=== PATIENT | male | born 1940 | race Caucasian/White ===

== ENCOUNTER 2025-04-09 10:42 | Emergency (ER) | payer MEDICARE, MEDICAID, SELFPAY ==
[2025-04-09] VITALS (9 sets, daily range): BP systolic 155–200; BP diastolic 67–82; PULSE 70–75; RESP 16–18; TEMP 36.8; O2SAT 94–98; BMI 29.5
--- NOTE | 2025-04-09 11:45 | CT_ITS ---
WS: [id number] CT CERVICAL TRAUMA TECHNIQUE: Noncontrast CT of the cervical spine with coronal and sagittal reformatted images. CLINICAL INFORMATION: injury, fall, stuck on tool box COMPARISON: None. DLP: 1374.[address] scans at [facility] use at least one of these dose optimization techniques: automated exposure control; mA and/or kV adjustment per patient size (includes targeted exams where dose is matched to clinical indication); or iterative reconstruction. FINDINGS: Ankylosis of the posterior elements. Fracture through the bony ankylosis posterior elements at LEFT C4-5 extending into the adjacent articulating facets and extending into the lamina. Suspect this extends into the LEFT C4-5 disc space with a small nondisplaced fracture involving the inferior posterior corner at C4. Disruption of the posterior longitudinal ligament. Fracture appears to extend through the disc space at C4-5 best seen on the coronal imaging. Disruption of the anterior longitudinal ligament and bridging osteophytes at this level. Straightening of the normal cervical lordosis. Hypertrophic changes cervical spine. Disc osteophyte complexes with mild to moderate central canal stenosis C2-3 through C5-6. Moderate spondylitic changes. Vascular calcification. Normal craniocervical junction. Normal C1-C2 articulation. Dens is normal in appearance. Pannus formation at the C1-2 articulation Mastoids air cells are well aerated. Nodular RIGHT thyroid. CT/CT cervical spin wo con* [id number] IMPRESSION: 1. Nondisplaced fractures involving the LEFT ankylosed posterior elements at C 4-5 extending into the articulating facets and lamina. This also appears to ext end through the C4-5 disc space with disruption of the anterior and posterior l ongitudinal ligaments. Additional nondisplaced fracture involving the LEFT post erior inferior corner C4. Recommend spine surgery consultation. 2. See bookmarked images 3. Mild to moderate central canal stenosis worse at C5-6 due to disc osteophyt e complex. Notified Jose Montaño DO at 04/09/2025 1:05 PM.
--- NOTE | 2025-04-09 11:45 | CT_ITS ---
WS: [id number] CT HEAD TECHNIQUE: Noncontrast CT of the head obtained from the skullbase to the vertex. CLINICAL INFORMATION: injury, fall COMPARISON: None. DLP: 1374.[address] scans at [facility] use at least one of these dose optimization techniques: automated exposure control; mA and/or kV adjustment per patient size (includes targeted exams where dose is matched to clinical indication); or iterative reconstruction. FINDINGS: No evidence of intracranial hemorrhage or mass effect. Ventricular system and basal cisterns are patent. Moderate small vessel changes with moderate parenchymal volume loss. No extra-axial fluid collections. No evidence of mass or mass effect. Vascular calcification. Paranasal sinuses and mastoid air cells are well aerated. .Normal visualized soft tissues. CT/CT head wo con* [id number] IMPRESSION: 1. No evidence of intracranial hemorrhage or mass effect. 2. Moderate small vessel changes with moderate parenchymal volume loss. 3. Vascular calcification. 4. No acute intracranial findings.
--- NOTE | 2025-04-09 11:55 | CT_ITS ---
WS: [id number] CT CHEST, ABDOMEN, AND PELVIS TECHNIQUE: Noncontrast CT of the chest, abdomen, and pelvis with coronal and sagittal reformatted images. CLINICAL INFORMATION: fall, trauma back pain COMPARISON: None. DLP: 885.[address] scans at [facility] use at least one of these dose optimization techniques: automated exposure control; mA and/or kV adjustment per patient size (includes targeted exams where dose is matched to clinical indication); or iterative reconstruction. CT CHEST: Sternotomy. Nodular RIGHT thyroid. Aortic calcification. Coronary calcification. CABG. Bibasilar atelectasis. No pneumothorax. No focal consolidation or pleural fluid. Ankylosis thoracic spine. No visualized compression fractures. CT ABDOMEN AND PELVIS: Normal noncontrast liver and spleen. Splenic artery calcification. Adrenal glands are normal. No hydronephrosis in either kidney. Small esophageal hiatal hernia. Fluid distended stomach with air-fluid level. Aortic calcification. 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 Tiny fat-containing umbilical hernia. No free fluid in the abdomen or pelvis. Sigmoid diverticulosis. No acute traumatic findings in the abdomen or pelvis. Ankylosis lumbar spine with laminectomy defects in the mid lumbar spine. No acute appearing compression fractures. CT/[place] [id number] IMPRESSION: No acute traumatic findings in the chest abdomen or pelvis.
--- OUTSIDE RECORDS SUMMARY | 2025-04-09 12:00 | XMS_ITS ---
Author Organization [facility] Address [address] 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 Hyperlipidemia 04/05/2008 Overview (08/19/2016): Lab Results Component Value Date/Time CHOLTOT 179 08/18/2016 08:29 AM HDL 33 (L) 08/18/2016 08:29 AM LDLCALC 88 08/18/2016 08:29 AM LDLDIRECT 133 (H) 03/08/2008 08:34 AM LDLDIRECT 03/08/2008 08:34 AM DIRECT LDL REFERENCE: < 100 Optimal 100 - 129 Near Optimal 130 - 159 Borderline High > 160 High Risk TRIGLYCERIDE 289 (H) 08/18/2016 08:29 AM Lab Results Component Value Date/Time HGBA1C 8.7 (H) 08/18/2016 08:29 AM Lab Results Component Value Date/Time NA 137 08/18/2016 08:29 AM K 5.0 08/18/2016 08:29 AM CL 98 08/18/2016 08:29 AM CO2 27 08/18/2016 08:29 AM CA 9.5 08/18/2016 08:29 AM BUN 14 08/18/2016 08:29 AM CREAT 0.86 08/18/2016 08:29 AM GLUCOSE 212 (H) 08/18/2016 08:29 AM TOTALPROTEIN 7.8 08/18/2016 08:29 AM ALBUMIN 4.2 08/18/2016 08:29 AM BILITOTAL 0.4 08/18/2016 08:29 AM ALKPHOS 47 08/18/2016 08:29 AM AST 39 08/18/2016 08:29 AM ALT 41 08/18/2016 08:29 AM ANIONGAP 12 08/18/2016 08:29 AM Assessment & Plan (08/19/2016 1:26 PM GEL COAT SPRAYER): Stable. GERD (gastroesophageal reflux disease) Current Treatment and Therapy Plans No current plan information found. Past Treatment and Therapy Plans No past plan information found. Lifetime Dose Tracking * Chemical Lifetime Dose Automatic Entry Manual Entr y Effective Dose 29.1 mSv 29.1 mSv 0 mSv Total DLP 2,750 DLP 2,750 DLP 0 DLP CTDIvol Max 121.2 mGy 121.2 mGy 0 mGy CTDIvol Min 58.2 mGy 58.2 mGy 0 mGy Resolved Problems Problem Noted Date Diagnosed Date Resolved Date Ileus 04/13/2015 08/19/2016 Prostate cancer 06/12/2014 05/19/2016 Abscess in epidural and intr adural space of lumbar spine, L2-S1 03/15/2014 04/13/2015 Overview (03/15/2014): L2-S1 decompressive lumbar laminectomy with bilateral medial facetectomies. Surgery 03-13-14 Decompression of the nerve roots of the cauda equina. Evacuation of extradural and intradural abscess L2-S1 Use of intraoperative fluoroscopy Thecal abscess 03/13/2014 04/13/2015 Overview (03/13/2014): vs possible meningitis Altered mental status 03/12/20142013 Radiculopathy of lumbar region 03/12/2014 04/13/2015 Leukocytosis 03/12/2014 04/24/2014 Hyponatremia 03/12/2014 04/24/2014 Chest pain 07/02/2008 08/14/2008 Previous back surgery 07/03/19652013 Intermediate coronary syndrome 09/15/2013 Arthropathy, unspecified, site unspecified 09/15/2013
--- OUTSIDE RECORDS SUMMARY | 2025-04-09 12:00 | XMS_ITS | Encounter Summary ---
Author Organization [facility] Address [address] [place] [address] Care Team Providers Care Director Of Home Economics Name Role Phone Destiny Peck MD Primary Care Provider [phone] Encounter Details Date Type Department Care Team (Late st Contact Info) Description 04/03/2014 Ancillary Orders [facility] Laboratory Services [place] [address] [phone] Dinah Mercado MD NO ADDRESS ON FILE Social History Tobacco Use Types Packs/Day Years Used Date Smoking Tobacco: Former Pipe Q uit: 06/21/1999 Cigars Quit: 06/21/19 00 Smokeless Tobacco: Former Chew Quit: 06/21/1999 Alcohol Use Standard Drinks/Week Comments No 0 (1 standard drink = 0.6 oz pur e alcohol) Sex and Gender Information Value Date Recorded Sex Assigned at Not on file Legal Sex Male 3:17 AM INSTITUTIONAL NUTRITION CONSULTANT Gender Identity Not on file Sexual Orientation Not on file Occupation Industry Job Start Date Job End Date Not on file Not on file Not on file Not on file documented as of this encounter Plan of Treatment Not on file documented as of this encounter Visit Diagnoses Not on filedocumented in this encounter Additional Health Concerns Infection Onset Date Last Indicated Resolved Time C Diff Comment:04/16/15 04/17/2015 04/17/2015 documented as of this encounter Care Teams Director Of Home Economics Relationship Specialty Start Date End Date Destiny Peck MD [address] [phone] PCP - General Family Practice 07/10/13 documented as of this encounter
--- OUTSIDE RECORDS SUMMARY | 2025-04-09 12:00 | XMS_ITS | Encounter Summary ---
Author Organization [facility] Address [address] [place] [address] Care Team Providers Care Process Trainer Name Role Phone Destiny ePck MD Primary Care Provider [phone] Encounter Details Date Type Department Care Team (Late st Contact Info) Description 04/10/2014 Ancillary Orders [facility] Laboratory Services [place] [address] [phone] Dinah Mercado MD NO ADDRESS ON FILE [...] on file Legal Sex Male 3:17 AM DOCTOR OF DENTAL MEDICINE Gender Identity Not on file Sexual Orientation [...] documented as of this encounter Care Teams Process Trainer Relationship Specialty Start Date End Date Destiny Peck MD [address] [phone] PCP - General Family Practice 07/10/13 documented as of this encounter
--- OUTSIDE RECORDS SUMMARY | 2025-04-09 12:00 | XMS_ITS | Encounter Summary ---
Author Organization [facility] Address [address] [place] [address] Care Team Providers Care Graduation Coach Name Role Phone Destiny Peck MD Primary Care Provider Encounter Details Date Type Department Care Team (Latest Contact Info) Description 07/30/2003 Outpatient Historical [facility] [address] [place] [address] Beth Brunre, R[employer]D MILL OPERATOR [address] [place] [phone] ACUTE SINUSITIS NOS (Primary Dx); ACUTE BRONCHITIS Social History Tobacco Use Types Packs/Day Years Used Date Smoking Tobacco: Never Assessed Sex and Gender Information Value Date Recorded Sex Assigned at Not on file Legal Sex Male 3:17 AM REPLANTING MACHINE OPERATOR Gender Identity Not on file Sexual Orientation Not on file documented as of this encounter Plan of Treatment Not on file documented as of this encounter Visit Diagnoses Diagnosis Acute sinusitis, unspecified- Primary Acute bronchitis documented in this encounter Additional Health Concerns Infection Onset Date Last Indicated Resolved Time C Diff Comment:04/16/15 04/17/2015 04/17/2015 documented as of this encounter Care Teams Graduation Coach Relationship Specialty Start Date End Date Destiny Peck MD [address] [facility] [address] [place] [phone] PCP - General Family Practice 07/10/13 documented as of this encounter
--- OUTSIDE RECORDS SUMMARY | 2025-04-09 12:00 | XMS_ITS | Encounter Summary ---
Author Organization [facility] Address [address] [place] [address] Care Team Providers Care Hotel Custodian Name Role Phone Destiny Peck MD Primary Care Provider [phone]- [phone] Encounter Details Date Type Department Care Team (Late st Contact Info) Description 04/03/2014 Ancillary Orders [facility] Laboratory Services [place] [address] [phone] Dinah Mercado MD NO ADDRESS ON FILE [...] on file Legal Sex Male 3:17 AM VERTICA ARCHITECT Gender Identity Not on file Sexual Orientation [...] documented as of this encounter Care Teams Hotel Custodian Relationship Specialty Start Date End Date Destiny Peck MD [address] [phone] PCP - General Family Practice 07/10/13 documented as of this encounter
--- OUTSIDE RECORDS SUMMARY | 2025-04-09 12:00 | XMS_ITS | Clinical Summary ---
Author Organization [facility] Address [address] [place] [address] Care Team Providers Care Manager Of Corporate Name Role Phone Destiny Peck MD Primary Care Provider Allergies No known active allergies Medications ASPIRIN 81 mg Oral Tab Take 81 mg by mouth daily. Active MULTIVITAMIN Oral Tab Take 1 Tab by mouth daily. Active acetaminophen (TYLENOL) 500 mg tablet Take 500 mg by mouth every 6 hours as needed for Pain, Mild. Active coenzyme Q10 (CO Q-10) Capsule Take 1 Capsule (10 mg) by mouth daily. 8 Active Blood-Glucose Meter (BLOOD GLUCOSE MONITOR KIT) KitIndications:T ype 2 diabetes mellitus with complication, unspecified whether long distance operator insulin use ([facility]) Use as directed.. 1 Kit 1 8 Active lancets (ONETOUCH ULTRASOFT LANCETS)Indicati ons:Uncontrolled type 2 diabetes mellitus without complication, without long-term current use of insulin Use to check blood sugar one time daily DX: E11.65. 100 Each 1 8 Active lancets 30 gauge 1 Lancet by Misc.(Non-Drug; Combo Route) route daily E11.65 Reli-On Ultra thin lancets. 100 Each 11 9 Active fluticasone propionate (FLONASE) 50 mcg/spray [place], Suspension nasal inhaler Administer 2 Sprays in each nostril daily. 16 Gram 1 9 Active omega-3 fatty acids-fish oil 300-1,000 mg Capsule Take by mouth daily. Active nitroglycerin (NITROSTAT) 0.4 mg Tablet, Sublingual Place 1 Tablet (0.4 mg) under tongue every 5 minutes as needed for Chest Pain. Go to the ER if CP not relieved by 3rd dose. 25 Tablet 1 0 Active metFORMIN (GLUCOPHAGE) 500 mg tablet 2 tablets in morning 2 tablet in afternoon 360 Tablet 3 0 Active blood sugar diagnostic (Geosophicuch Verio test strips) Strip USE 1 STRIP TO CHECK GLUCOSE ONCE DAILY DX:E11.65 100 Strip 2 1 Active hydrOXYzine HCL (ATARAX) 10 mg tablet TAKE 1 TABLET BY MOUTH TWICE DAILY NEEDED FOR ALLERGIES 30 Tablet 1 Active lisinopriL (PRINIVIL) 5 mg tablet Take 1 tablet by mouth once daily 90 Tablet 1 Active simvastatin (ZOCOR) 20 mg tablet TAKE 1 TABLET BY MOUTH ONCE DAILY. 90 Tablet 1 1 Active metoprolol tartrate (LOPRESSOR) 25 mg tablet Take 1 Tablet (25 mg) by mouth 2 times daily. 180 Tablet 1 1 Active glipiZIDE (GLUCOTROL) 5 mg tablet Take 1 tablet by mouth once daily with breakfast 30 Tablet 1 Active Active Problems Problem Noted Date Diagnosed Date [...] GLEZ/Diagnonal Assessment & Plan (08/19/2016 1:28 PM RESIDENTIAL PEST CONTROL TECHNICIAN): Stable. Hyperlipidemia 04/05/2008 Overview (08/19/2016): Lab Results [...] AM Assessment & Plan (08/19/2016 1:26 PM RESIDENTIAL PEST CONTROL TECHNICIAN): Stable. GERD (gastroesophageal reflux disease) Resolved Problems Problem Noted Date Diagnosed Date [...] syndrome 09/15/2013 Arthropathy, unspecified, site unspecified 09/15/2013 Immunizations Immunization Administration Dates Next Due INFLUENZA VACCINE HIGH DOSE QUADRIVALENT 65 YR UP PF IM 04/19/2020 Influenza Seasonal Unspecifi ed Formulation IM 07/09/2008 Influenza Vaccine High Dose 65+ Yrs IM 03/29/2019,04/05/2018,03/12/2017,2015 Influenza Vaccine Split 3+ Yrs PF IM 02/2013,04/04/2012,05/18/2011,2009 Pneumococcal 7-valent conjug ate vaccine IM 07/09/2008 Family History Medical History Relation Name Comments Heart Disease Brother 1 cinda Heart Disease Brother 2 Heart Disease Father Healthy Mother Breast Cancer Other paunt x 2 Cancer Sister stomach Hypertension Son Colon Cancer Neg Hx Relation Name Status Comments Brother 1 cinda Alive Brother 2 Daughter Father Mother Other paunt x 2 Alive Sister Son Social History Tobacco Use Types Packs/Day Years Used Date Smoking Tobacco: Former Pipe Q uit: 06/21/1999 Cigars Quit: 06/21/19 Smokeless Tobacco: Former Chew Quit: 06/21/1999 Tobacco Cessation:Counseling Given: No Alcohol Use Standard Drinks/Week Comments No 0 (1 standard drink = 0.6 oz pur e alcohol) rarely Sex and Gender Information Value Date Recorded Sex Assigned at Not on file Legal Sex Male 3:17 AM RESIDENTIAL PEST CONTROL TECHNICIAN Gender Identity Not on file Sexual Orientation Not on file Occupation Industry Job Start Date Job End Date Not on file Not on file Not on file Not on file Last Filed Vital Signs Vital Sign Reading Time Taken Comments Blood Pressure 124/72 03/20/2020 11:19 AM CDT Pulse 92 03/20/2020 11:19 AM CDT Temperature 36.2 C (97.2 F) 03/20/2020 11:19 AM CDT Respiratory Rate 20 03/20/2020 11:1 9 AM CDT Oxygen Saturation 93% 03/20/2020 11: 19 AM CDT Inhaled Oxygen Concentration - - Weight 97.9 kg (215 lb 12.8 oz) 020 11:19 AM CDT Height 177.8 cm (5' 10 ) 03/20/2020 11: 19 AM CDT Body Mass Index 30.96 03/20/2020 11:19 AM CDT Plan of Treatment Health Maintenance Due Date Last Done Comments DTAP/TDAP/TD VACCINES (1 - Tdap) 1959 PNEUMOCOCCAL VACCINE 50+ YEA RS (1 of 2 - PCV) 1959 07/09/2008 ZOSTER VACCINE (1 of 2) 1990 RSV VACCINE (60+ or ) (1 - 1-dose 75+ series) 2015 Traditional Medicare (ACO) A nnual Wellness Visit 08/20/2017 08/19/2016, 11/24/2013 COLORECTAL SCREENING 05/20/2020 05/20/2017, 05/20/2017, 05/20/2017 DIABETES ANNUAL FOOT EXAM 06/12/20202018, 06/12/2019, 11/26/2017, Additional history exists DIABETES MICROALBUMIN ANNUAL SCREEN 06/12/2020 06/12/2019, 08/18/2016, 07/21/2014 DIABETES HBA1C Q 6 MONTHS 11/22/20202019, 12/28/2019, 09/11/2019, Additional history exists LDL CHOLESTEROL ANNUAL 05/24/2021 0, 12/28/2019, 12/06/2018, Additional history exists INFLUENZA VACCINE (#1) 2025 0, 03/20/2020, 03/29/2019, Additional history exists DIABETES ANNUAL RETINAL EXAM 11/10/2025 11/10/2024 Medical Devices Implanted Type Area Plaster Machine Tender Device Identifier Shelf Expiration Date Model / Serial / Lot 8fr Flexima Nephrostomy Catheter-2014 Implanted:Qty: 1 on 04/15/2015 by Harshad Monroe MD Catheter Left: Abdomen [employer] 12/30/2017 [id number] / / [id number] Flexima Nephrostomy Catheter-2014 Implanted:Qty: 1 on 04/15/2015 by Harshad Monroe MD Catheter Right: Abdomen [employer] 12/10/2017 [id number] / / [id number] Sealant Floseal W/ Adptr 10ml [id number] - [id number] Implanted:Qty: 1 on 04/08/2015 by Jefe Hearn MD at [facility] Sealant N/A: Abdomen [employer] 05/20/2016 [id number] / / [id number] Procedures Procedure Name Priority Date/Time Associated Diagnosis Comments LIPID PANEL Routine 05/24/2020 8:22 AM RESIDENTIAL PEST CONTROL TECHNICIAN Hyperlipidemia, unspecified hyperlipidemia type HEMOGLOBIN A1C Routine 05/24/2020 8:22 AM RESIDENTIAL PEST CONTROL TECHNICIAN Type 2 diabetes mellitus with hyperglycemia, without long-term current use of insulin ([facility]) MICROALBUMIN/CREATI NINE RATIO, RANDOM UR Routine 06/12/2019 11:42 AM RESIDENTIAL PEST CONTROL TECHNICIAN Type 2 diabetes mellitus with hyperglycemia, without long-term current use of insulin ([facility]) from Last 3 Months or Most Recently Relevant to Health Maintenance Results * (ABNORMAL) HEMOGLOBIN A1C (05/24/2020 8:22 AM RESIDENTIAL PEST CONTROL TECHNICIAN) HEMOGLOBIN A1C 7.2(H) See Comment % 05/24/2020 8:44 PM RESIDENTIAL PEST CONTROL TECHNICIAN [facility] EST. AVG GLUCOSE, A1C 160 mg/dL 05/24/2020 8:44 PM [facility] Blood Collection / Unknown 05/24/2020 8:22 AM RESIDENTIAL PEST CONTROL TECHNICIAN 05/24/2020 8:15 PM RESIDENTIAL PEST CONTROL TECHNICIAN Narrative [facility] - 05/24/2020 8:44 PM RESIDENTIAL PEST CONTROL TECHNICIAN HGB A1C INTERPRETATION NORMAL: <5.7% PRE-DIABETES: 5.7 - 6.4% DIABETES: 6.5% OR GREATER Falsely low A1C measurements can occur when: 1. Anemia and/or hemolytic anemia is present. 2. Hemoglobin variants present. 3. Renal failure. 4. Transfusion of blood product in the last 120 days. We recommend ordering a fructosamine test([id number]) to more accurately assess glycemic status if any of the above conditions are present. Gregorio GARCIA CHEMISTRY ORDERABLES Final Re sult [facility] CLIA# [id number] [address] [place] [address] * (ABNORMAL) LIPID PANEL (05/24/2020 8:22 AM RESIDENTIAL PEST CONTROL TECHNICIAN) CHOLESTEROL 150 <200 mg/dL 05/24/2020 9:19 PM [facility] TRIGLYCERIDE 213(H) <150 mg/dL 05/24/2020 9:19 PM [facility] HDL 37(L) 40 - 59 mg/dL 05/24/2020 9:19 PM [facility] LDL CALCULATED 70 <100 mg/dL 05/24/2020 9:19 PM [facility] NON-HDL CHOLESTEROL 113 <130 mg/dL 05/24/2020 9:19 PM [facility] Blood Collection / Unknown 05/24/2020 8:22 AM RESIDENTIAL PEST CONTROL TECHNICIAN 05/24/2020 8:15 PM RESIDENTIAL PEST CONTROL TECHNICIAN Narrative [facility] - 05/24/2020 9:19 PM RESIDENTIAL PEST CONTROL TECHNICIAN TOTAL CHOLESTEROL mg/dL Desirable <200 Borderline high 200-239 High >=240 TRIGLYCERIDES mg/dL Normal <150 Borderline high 150-199 High 200-499 Very high >=500 HDL CHOLESTEROL mg/dL Low <40 Normal 40-59 Desirable >=60 NON HDL CHOLESTEROL mg/dL Optimal <130 Near Optimal 130-159 Borderline High 160-189 Very High >=190 CALCULATED LDL mg/dL LDL <70, OPTIMAL if have Atherosclerotic cardiovascular disease (ASCVD) or intermediate or higher (>7.5%) 10 year risk of ASCVD including most adults with diabetes. LDL <100, Optimal in adult patients with low (<7.5%) 10 year ASCVD risk LDL 100-160, Suboptimal LDL >160, High LDL >190, Very high ATPIII Guidelines Reference Ranges for Lipid Panels (NCEP/AMA) . Gregorio GARCIA CHEMISTRY ORDERABLES Final Re sult [facility] CLIA# [id number] [address] [place] [address] * MICROALBUMIN/CREATININE RATIO, RANDOM UR (06/12/2019 11:42 AM RESIDENTIAL PEST CONTROL TECHNICIAN) MICROALBUMIN, URINE <1.2 No Reference Range mg/dL 06/12/2019 9:20 PM [facility] CREATININE, URINE 133.5 40.0 - 278.0 mg/dL 06/12/2019 9:20 PM [facility] Comment:Reference Range vari es with fluid intake and diet. MICROALBUMIN/C REAT RATIO, UR <9.0 <17.0 mg/g 06/12/2019 9:20 PM [facility] Urine URINE SPECIMEN OBTAINED BY CLEAN CATCH PROCEDURE / Unknown Collection / Unknown 06/12/2019 11:42 AM RESIDENTIAL PEST CONTROL TECHNICIAN 06/12/2019 7:58 PM RESIDENTIAL PEST CONTROL TECHNICIAN Narrative [facility] - 06/12/2019 9:20 PM RESIDENTIAL PEST CONTROL TECHNICIAN Condition Microalbumin/Creat ratio Normal Males <17 Normal Females <25 Microalbuminuria Males 17-299 Microalbuminuria Females 25-299 Overt proteinuria >=300 Gregorio GARCIA URINE ORDERABLES Final Result Performing Organization Address [facility]/ZIP Co de Phone Number [facility] CLIA# [id number] [address] [place] [phone] from Last 3 Months or Most Recently Relevant to Health Maintenance Additional Health Concerns Infection Onset Date Last Indicated C Diff Comment:04/16/15 04/17/2015 04/17/2015 Insurance MEDICARE PART A AND B [place]ICAID [place] MEDICARE PART A AND B Advance Directives For more information, please contact: [phone] Documents on File Type Date Recorded Patient 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 Java 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 Expl anation Advance Directive POA 03/22/2014 9:32 AM A dvance Directive POA * Full Code (Latest Code Status on File) Date Activated Date Inactivated Comments 04/08/2015 5:03 PM 04/22/2015 7:55 PM * Full Code Date Activated Date Inactivated Comments 03/14/2014 12:17 AM 03/20/2014 3:08 AM * Full Code Date Activated Date Inactivated Comments 03/12/2014 4:13 PM 03/13/2014 6:51 PM * Full Code Date Activated Date Inactivated Comments 07/05/2008 2:04 PM 07/09/2008 6:26 PM * Full Code Date Activated Date Inactivated Comments 07/03/2008 12:41 AM 07/05/2008 2:04 PM Care Teams Manager Of Corporate Relationship Specialty Start Date End Date Destiny Peck MD [address] [phone] PCP - General Family Practice 07/10/13
--- OUTSIDE RECORDS SUMMARY | 2025-04-09 12:00 | XMS_ITS | Encounter Summary ---
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
--- OUTSIDE RECORDS SUMMARY | 2025-04-09 12:00 | XMS_ITS | Encounter Summary ---
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
--- OUTSIDE RECORDS SUMMARY | 2025-04-09 12:00 | XMS_ITS | Encounter Summary ---
Author Organization [facility] Address [address] [place] [address] Care Team Providers Care Dental Scheduling Coordinator Name Role Phone Destiny Peck MD Primary Care Provider [phone] Encounter Details Date Type Department Care Team (Late st Contact Info) Description 04/10/2014 Ancillary Orders [facility] Laboratory Services [place] [address] [phone] Destiny Peck MD [address] [facility] [address] [place] [address] Social History Tobacco Use Types Packs/Day Years Used Date Smoking Tobacco: Former Pipe Q uit: 06/21/1999 Cigars Quit: 06/21/19 Smokeless Tobacco: Former Chew Quit: 06/21/1999 Alcohol Use Standard Drinks/Week Comments No 0 (1 standard drink = 0.6 oz pur e alcohol) Sex and Gender Information Value Date Recorded Sex Assigned at Not on file 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
--- OUTSIDE RECORDS SUMMARY | 2025-04-09 12:00 | XMS_ITS | Encounter Summary ---
Author Organization [facility] Address [address] [place] [address] Care Team Providers Care English Composition Instructor Name Role Phone Destiny Peck MD Primary Care Provider [phone]- [phone] Encounter Details Date Type Department Care Team (Late st Contact Info) Description 04/10/[address] 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
[2025-04-09] MEDS: oxyCODONE-APAP 5-325 mg Tablet 1 TAB PO ×2 (12:01→15:19)
--- OUTSIDE RECORDS SUMMARY | 2025-04-09 12:01 | XMS_ITS | Encounter Summary ---
Author Organization [facility] Address [address] [place] [address] Care Team Providers Care Apparel Sales Associate Name Role Phone Destiny Peck MD Primary Care Provider Encounter Details Date Type Department Care Team (Latest Contact Info) Description 06/03/2001 Outpatient Historical 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 Gender Identity Not on file Sexual Orientation Not on file documented as of this encounter Plan of Treatment Not on file documented as of this encounter Visit Diagnoses Diagnosis Other affections of shoulder region, not elsewhere classified- Primary Special screening for malignant neoplasm of prostate Screening for lipoid disorders documented in this encounter Additional Health Concerns Infection Onset Date Last Indicated Resolved Time C Diff Comment:04/16/15 04/17/2015 04/17/2015 documented as of this encounter Care Teams Apparel Sales Associate Relationship Specialty Start Date End Date Destiny Peck MD [address] [place] [phone] PCP - General Family Practice 07/10/13 documented as of this encounter
--- OUTSIDE RECORDS SUMMARY | 2025-04-09 12:01 | XMS_ITS | Encounter Summary ---
Author Organization [facility] Address [address] [place] [address] Care Team Providers Care Lathmaker Name Role Phone Destiny Peck MD Primary Care Provider Encounter Details Date Type Department Care Team (Latest Contact Info) Description 10/13/2000 Outpatient Historical [facility] Medicine- [address] [phone] Gulshan Mir MD [address] [phone] Esophageal reflux (Primary Dx); Chest pain, unspecified Social History Tobacco Use Types Packs/Day Years Used Date Smoking Tobacco: Never Assessed Sex and Gender Information Value Date Recorded Sex Assigned at Not on file 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 Gender Identity Not on file Sexual Orientation Not on file documented as of this encounter Plan of Treatment Not on file documented as of this encounter Visit Diagnoses Diagnosis Esophageal reflux- Primary Chest pain, unspecified documented in this encounter Additional Health Concerns Infection Onset Date Last Indicated Resolved Time C Diff Comment:04/16/15 04/17/2015 04/17/2015 documented as of this encounter Care Teams Lathmaker Relationship Specialty Start Date End Date Destiny Peck MD [address] [phone] PCP - General Family Practice 07/10/13 documented as of this encounter
--- OUTSIDE RECORDS SUMMARY | 2025-04-09 12:01 | XMS_ITS | Encounter Summary ---
Author Organization [facility] Address [address] [place] [address] Care Team Providers Care Shuttleless Loom Weaver Name Role Phone Destiny Peck MD Primary Care Provider [phone] Encounter Details Date Type Department Care Team (Latest Contact Info) Description 10/19/2000 Outpatient Historical [facility] Medicine [address] [phone] Ronna Sidhu MD Esophageal reflux (Primary Dx); Screening for malignant neoplasm of the rectum Social History Tobacco Use Types Packs/Day Years Used Date Smoking Tobacco: Never Assessed Sex and Gender Information Value Date Recorded Sex Assigned at Not on file 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 Gender Identity Not on file Sexual Orientation Not on file documented as of this encounter Plan of Treatment Not on file documented as of this encounter Visit Diagnoses Diagnosis Esophageal reflux- Primary Screening for malignant neoplasm of the rectum documented in this encounter Additional Health Concerns Infection Onset Date Last Indicated Resolved Time C Diff Comment:04/16/15 04/17/2015 04/17/2015 documented as of this encounter Care Teams Shuttleless Loom Weaver Relationship Specialty Start Date End Date Destiny Peck MD [facility] [address] [phone] PCP - General Family Practice 07/10/13 documented as of this encounter
--- OUTSIDE RECORDS SUMMARY | 2025-04-09 12:01 | XMS_ITS | Encounter Summary ---
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
--- OUTSIDE RECORDS SUMMARY | 2025-04-09 12:01 | XMS_ITS | Encounter Summary ---
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
--- OUTSIDE RECORDS SUMMARY | 2025-04-09 12:01 | XMS_ITS | Encounter Summary ---
Author Organization [facility] Address [address] [place] [address] Care Team Providers Care Classics Professor Name Role Phone Destiny Peck MD Primary Care Provider Encounter Details Date Type Department Care Team (Latest Contact Info) Description 10/14/2000 Outpatient Historical [facility] Family Medicine [address] [phone] Ronna Sidhu MD Esophageal reflux (Primary Dx) Social History Tobacco Use Types Packs/Day Years Used Date Smoking Tobacco: Never Assessed Sex and Gender Information Value Date Recorded Sex Assigned at Not on file 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
--- OUTSIDE RECORDS SUMMARY | 2025-04-09 12:01 | XMS_ITS | Encounter Summary ---
Author Organization [facility] Address [address] [place] [address] [address] Team Providers Care [address] Project Manager Name Role Phone Destiny Peck MD Primary Care Provider Encounter Details Date Type Department Care Team (Latest Contact Info) Description 06/23/2000 Outpatient Historical [facility] Family Medicine- [address] [phone] Gulshan Mir MD [address] [phone] Esophageal reflux (Primary Dx); Hyperplasia of prostate Social History Tobacco Use Types Packs/Day Years Used Date Smoking Tobacco: Never Assessed Sex and Gender Information Value Date Recorded Sex Assigned at Not on file 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 Gender Identity Not on file Sexual Orientation Not on file documented as of this encounter Plan of Treatment Not on file documented as of this encounter Visit Diagnoses Diagnosis Esophageal reflux- Primary Hyperplasia of prostate documented in this encounter Additional Health Concerns Infection Onset Date Last Indicated Resolved Time C Diff Comment:04/16/15 04/17/2015 04/17/2015 documented as of this encounter Care Teams Rd Project Manager Relationship Specialty Start Date End Date Destiny Peck MD [address] [facility] [address] [place] [phone] PCP - General Family Practice 07/10/13 documented as of this encounter
--- OUTSIDE RECORDS SUMMARY | 2025-04-09 12:01 | XMS_ITS | Encounter Summary ---
Author Organization [facility] Address [address] [place] [address] Care Team Providers Care Agricultural Produce Sorter Name Role Phone Destiny Peck MD Primary Care Provider Encounter Details Date Type Department Care Team (Latest Contact Info) Description 10/26/[address] 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
--- OUTSIDE RECORDS SUMMARY | 2025-04-09 12:01 | XMS_ITS | Encounter Summary ---
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
--- OUTSIDE RECORDS SUMMARY | 2025-04-09 12:01 | XMS_ITS | Encounter Summary ---
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
--- OUTSIDE RECORDS SUMMARY | 2025-04-09 12:02 | XMS_ITS | Encounter Summary ---
Author Organization [facility] Address [address] [place] [address] Care Team Providers Care Education Program Specialist Name Role Phone Destiny Peck MD Primary Care Provider Encounter Details Date Type Department Care Team (Latest Contact Info) Description 01/24/2003 Outpatient Historical [facility] [address] [phone] Gulshan Mir MD [address] [phone] SHOULDER REGION DIS NEC (Primary Dx) Social History Tobacco Use Types Packs/Day Years Used Date Smoking Tobacco: Never Assessed Sex and Gender Information Value Date Recorded Sex Assigned at Not on file 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 Gender Identity Not on file Sexual Orientation Not on file documented as of this encounter Plan of Treatment Not on file documented as of this encounter Visit Diagnoses Diagnosis Other affections of shoulder region, not elsewhere classified- Primary documented in this encounter Additional Health Concerns Infection Onset Date Last Indicated Resolved Time C Diff Comment:04/16/15 04/17/2015 04/17/2015 documented as of this encounter Care Teams Education Program Specialist Relationship Specialty Start Date End Date Destiny Peck MD [address] [phone] PCP - General Family Practice 07/10/13 documented as of this encounter
--- OUTSIDE RECORDS SUMMARY | 2025-04-09 12:02 | XMS_ITS | Encounter Summary ---
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
--- OUTSIDE RECORDS SUMMARY | 2025-04-09 12:02 | XMS_ITS | Encounter Summary ---
Author Organization [facility] Address [address] [place] [address] Care Team Providers Care Dry Chain Operator Name Role Phone Destiny Peck MD Primary Care Provider Encounter Details Date Type Department Care Team (Latest Contact Info) Description 12/13/2001 Outpatient Historical [facility] Family Medicine [address] [phone] Gulshan Mir MD [address] [phone] ARTHROPATHY NOS-UNSPEC (Primary Dx) Social History Tobacco Use Types Packs/Day Years Used Date Smoking Tobacco: Never Assessed Sex and Gender Information Value Date Recorded Sex Assigned at Not on file 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 Gender Identity Not on file Sexual Orientation Not on file documented as of this encounter Plan of Treatment Not on file documented as of this encounter Visit Diagnoses Diagnosis Arthropathy, unspecified, site unspecified- Primary documented in this encounter Additional Health Concerns Infection Onset Date Last Indicated Resolved Time C Diff Comment:04/16/15 04/17/2015 04/17/2015 documented as of this encounter Care Teams Dry Chain Operator Relationship Specialty Start Date End Date Destiny Peck MD [address] [phone] PCP - General Family Practice 07/10/13 documented as of this encounter
--- OUTSIDE RECORDS SUMMARY | 2025-04-09 12:02 | XMS_ITS | Encounter Summary ---
Author Organization [facility] Address [address] [place] [address] Care Team Providers Care Senior Payroll Manager Name Role Phone Destiny Peck MD Primary Care Provider Encounter Details Date Type Department Care Team (Latest Contact Info) Description 05/22/2002 Outpatient Historical [facility] [address] [place] [address] Gulshan Mir MD [address] [facility] [address] [place] [phone] ACUTE BRONCHITIS (Primary Dx) Social History Tobacco Use Types Packs/Day Years Used Date Smoking Tobacco: Never Assessed Sex and Gender Information Value Date Recorded Sex Assigned at Not on file 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 Gender Identity Not on file Sexual Orientation Not on file documented as of this encounter Plan of Treatment Not on file documented as of this encounter Visit Diagnoses Diagnosis Acute bronchitis- Primary documented in this encounter Additional Health Concerns Infection Onset Date Last Indicated Resolved Time C Diff Comment:04/16/15 04/17/2015 04/17/2015 documented as of this encounter Care Teams Senior Payroll Manager Relationship Specialty Start Date End Date Destiny Peck MD [address] [facility] [address] [place] [phone] PCP - General Family Practice 07/10/13 documented as of this encounter
--- OUTSIDE RECORDS SUMMARY | 2025-04-09 12:02 | XMS_ITS | Encounter Summary ---
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
--- OUTSIDE RECORDS SUMMARY | 2025-04-09 12:02 | XMS_ITS | Encounter Summary ---
Author Organization [facility] Address [address] [place] [address] Care Team Providers Care Form Setter Steel Forms Name Role Phone Destiny Peck MD Primary Care Provider Encounter Details Date Type Department Care Team (Latest Contact Info) Description 06/10/2001 Outpatient Historical [facility] Medicine [address] [phone] Gulshan Mir MD [address] [phone] HYPERLIPIDEMIA NEC/NOS (Primary Dx); Elevated PSA Social History Tobacco Use Types Packs/Day Years Used Date Smoking Tobacco: Never Assessed Sex and Gender Information Value Date Recorded Sex Assigned at Not on file 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 Gender Identity Not on file Sexual Orientation Not on file documented as of this encounter Plan of Treatment Not on file documented as of this encounter Visit Diagnoses Diagnosis Other and unspecified hyperlipidemia- Primary Elevated PSA Elevated prostate specific antigen (PSA) documented in this encounter Additional Health Concerns Infection Onset Date Last Indicated Resolved Time C Diff Comment:04/16/15 04/17/2015 04/17/2015 documented as of this encounter Care Teams Form Setter Steel Forms Relationship Specialty Start Date End Date Destiny Peck MD [address] [phone] PCP - General Family Practice 07/10/13 documented as of this encounter
--- OUTSIDE RECORDS SUMMARY | 2025-04-09 12:02 | XMS_ITS | Encounter Summary ---
Author Organization [facility] Address [address] [place] [address] Care Team Providers Care Limerock Tower Loader Name Role Phone Destiny Peck MD Primary Care Provider Encounter Details Date Type Department Care Team (Latest Contact Info) Description 10/04/2001 Outpatient Historical [facility] Medicine- [address] [phone] Gulshan Mir MD [address] [phone] JOINT PAIN-SHLDER (Primary Dx); SKIN HYPERTRO/ATROPH NOS Social History Tobacco Use Types Packs/Day Years Used Date Smoking Tobacco: Never Assessed Sex and Gender Information Value Date Recorded Sex Assigned at Not on file 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 Gender Identity Not on file Sexual Orientation Not on file documented as of this encounter Plan of Treatment Not on file documented as of this encounter Visit Diagnoses Diagnosis Pain in joint, shoulder region- Primary Unspecified hypertrophic and atrophic condition of skin documented in this encounter Additional Health Concerns Infection Onset Date Last Indicated Resolved Time C Diff Comment:04/16/15 04/17/2015 04/17/2015 documented as of this encounter Care Teams Limerock Tower Loader Relationship Specialty Start Date End Date Destiny Peck MD [address] [facility] [address] [place] [phone] PCP - General Family Practice 07/10/13 documented as of this encounter
--- OUTSIDE RECORDS SUMMARY | 2025-04-09 12:03 | XMS_ITS ---
Author Organization [facility] Address [address] [facility] Attn: [place] [address] Care Team Providers Care Welt Edge Rounder Name Role Phone Jose Hendricks MD Primary Care Provider +1 -[phone] Active Problems Problem Noted Date Diagnosed Date S/P CABG (coronary artery bypass graft) 07/19/19 25 Rosacea 03/01/2024 Allergic rhinitis 07/16/2021 History of Clostridioides difficile infection Benign hypertension 03/14/2021 Personal history of prostate cancer 05/19/2016 S/P prostatectomy 04/13/2015 Anemia 05/31/2014 Diabetic peripheral neuropathy 09/13/2012 Type 2 diabetes mellitus wit h circulatory disorder, without long-term current use of insulin 01/14/2012 Coronary artery disease of n ative artery of [place] heart with stable angina pectoris 07/04/2008 Overview (10/17/2020): 06/2008 - four-vessel bypass with a SVG/OM, SVG/RCA, SVG/LAD and GLEZ/Diagnonal Hyperlipidemia 04/05/2008 Overview (10/16/2020): Lab Results Component Value Date/Time CHOLTOT 179 [...] 08:29 AM ANIONGAP 12 08/18/2016 08:29 AM Current Treatment and Therapy Plans No current plan information found. Past Treatment and Therapy Plans No past plan information found. Lifetime Dose Tracking * Chemical Lifetime Dose Automatic Entry Manual Entr y Effective Dose 29.1 mSv 0 mSv 29.1 mSv Total DLP 2,750 DLP 0 DLP 2,750 DLP CTDIvol Max 121.2 mGy 0 mGy 121.2 mGy CTDIvol Min 58.2 mGy 0 mGy 58.2 mGy Resolved Problems Problem Noted Date Diagnosed Date Resolved Date Urinary extravasation 05/01/20152021 Clostridium difficile diarrhea 04/16/2015 07/16/2021 Clostridium difficile infection 04/16/2015 07/16/2021 Ileus 04/13/2015 08/19/2016 Acute encephalopathy 04/13/2015 022 Hypoxia 04/13/2015 07/16/2021 Hypocalcemia 04/13/2015 07/16/2021 Dementia without behavioral disturbance 04/13/2015 02/25/2021 Renal insufficiency 04/13/2015 07/16/19 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 Surgery 03-13-14 Decompression of the nerve roots of the cauda equina. Evacuation of extradural and intradural abscess L2-S1 Use of intraoperative fluoroscopy Thecal abscess 03/13/2014 04/13/2015 Overview (10/16/2020): vs possible meningitis Altered mental status 03/12/20142013 Radiculopathy of lumbar region 03/12/2014 04/13/2015 Hyponatremia 03/12/2014 04/24/2014 Leukocytosis 03/12/2014 04/24/2014 Abnormal MRI, lumbar spine 03/12/2014 0 07/16/2021 Elevated PSA, greater than o r equal to 20 ng/ml 03/12/2014 07/16/2021 Back pain with radiation 03/12/2014 Chest pain 07/02/2008 08/14/2008 Previous back surgery 07/03/19652013 Intermediate coronary syndrome 09/15/2013 Arthropathy, unspecified, site unspecified 09/15/2013 GERD (gastroesophageal reflux disease) 07/16/2021
--- OUTSIDE RECORDS SUMMARY | 2025-04-09 12:03 | XMS_ITS | Encounter Summary ---
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
--- OUTSIDE RECORDS SUMMARY | 2025-04-09 12:03 | XMS_ITS | Encounter Summary ---
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
--- OUTSIDE RECORDS SUMMARY | 2025-04-09 12:03 | XMS_ITS | Encounter Summary ---
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
--- OUTSIDE RECORDS SUMMARY | 2025-04-09 12:03 | XMS_ITS | Clinical Summary ---
Author Organization [facility] Address [address] Attn: [place] [address] Care Team Providers Care Block Making Machine Operator Name Role Phone Jose Hendricks MD Primary Care Provider [phone] Allergies No known active allergies Medications lancets 30 gauge 1 [place] [facility] [place]Non[place]rug; Combo Route) route daily E11.65 Reli-On Ultra thin lancets. 100 Each 11 08/15/19 19 Active omega-3 fatty acids-fish oil 300-1,000 mg Capsule Take by mouth daily. 12/19/19 19 Active aspirin (ECOTRIN EC) 81 mg Tablet, Delayed Release (E.C.) Take 81 mg by mouth daily. Active acetaminophen (TYLENOL) 500 mg tablet Take 500 mg by mouth every 6 hours as needed. Active multivitamin (DAILY-LUCHO) tablet Take 1 Tablet by mouth daily. Active nitroglycerin (NITROSTAT) 0.4 mg Tablet, Sublingual Place 1 Tablet (0.4 mg) under tongue every 5 minutes as needed for Chest Pain. 30 Tablet 02/26/20 21 Active lancetsIndications :Uncontrolled type 2 diabetes mellitus without complication, without long-term current use of insulin Use to check blood sugar one time daily DX: E11.65. 100 Each 1 11/03/19 18 Active coenzyme Q10 Capsule Take 1 Capsule (10 mg) by mouth daily. 09/29/19 18 Active Blood-Glucose Meter KitIndications:Typ e 2 diabetes mellitus with complication, unspecified whether snf insulin use ([facility]) Use as directed.. 1 Kit 1 10/27/19 18 Active diclofenac sodium (VOLTAREN) 1 % gelIndications:Bur sitis of left shoulder,Chronic left shoulder pain Apply 2 Grams to affected area 4 times daily. 100 Gram 3 07/14/19 23 Active Additional Information Patient not taking.Reported on 01/03/2025 cetirizine (ZyrTEC) 10 mg tabletIndications: Allergic rhinitis, unspecified seasonality, unspecified trigger Take 1 Tablet (10 mg) by mouth daily at bedtime. 90 Tablet 2 03/08/20 23 Active triamcinolone acetonide (KENALOG) 0.1 % CreamIndications:A llergic contact dermatitis due to cosmetics Apply to affected area 2 times daily. 45 Gram 1 09/07/19 24 Active Additional Information Patient not taking.Reported on 01/03/2025 metroNIDAZOLE (METROGEL) 0.75 % GelIndications:Ros acea, unspecified APPLY TO AFFECTED AREA TWICE DAILY 45 Gram 09/07/19 24 Active Additional Information Patient not taking.Reported on 01/03/2025 polyethylene glycol 3350 (MIRALAX) 17 gram/dose PowderIndications: Slow transit constipation Take 1 Scoop (17 Grams) by mouth daily. Dissolve in 8 ounces of fluid and drink entire liquid 527 Gram 10/08/19 24 Active Clindamycin-Benzoy l Peroxide 1.2 %(1 % base) -5 % Gel Apply to affected area daily. 45 Gram 1 03/06/20 24 Active Additional Information Patient not taking.Reported on 01/03/2025 fluticasone propionate (FLONASE) 50 mcg/spray [place], Suspension nasal inhalerIndications :Vertigo Administer 2 Sprays in each nostril daily. 16 Gram 04/14/20 24 Active simvastatin (ZOCOR) 40 mg tabletIndications: Type 2 diabetes mellitus with other circulatory complication, without long-term current use of insulin,Coronary artery disease of [place] artery of [place] heart with stable angina pectoris,Mixed hyperlipidemia Take 1 Tablet (40 mg) by mouth daily. 100 Tablet 3 07/19/19 25 Active metoprolol tartrate (LOPRESSOR) 25 mg tabletIndications: Coronary artery disease of [place] artery of [place] heart with stable angina pectoris,Benign hypertension Take 1 Tablet (25 mg) by mouth 2 times daily. 200 Tablet 3 07/19/19 25 Active metFORMIN (GLUCOPHAGE) 1,000 mg tabletIndications: Type 2 diabetes mellitus with other circulatory complication, without long-term current use of insulin Take 1 Tablet (1,000 mg) by mouth 2 times daily with meals. 200 Tablet 3 07/19/19 25 Active lisinopriL (PRINIVIL) 5 mg tabletIndications: Type 2 diabetes mellitus with other circulatory complication, without long-term current use of insulin,Coronary artery disease of [place] artery of [place] heart with stable angina pectoris,Benign hypertension Take 1 Tablet (5 mg) by mouth daily. 100 Tablet 3 07/19/19 25 Active glipiZIDE 2.5 mg tabletIndications: Type 2 diabetes mellitus with other circulatory complication, without long-term current use of insulin Take 1 Tablet (2.5 mg) by mouth 1 time daily as needed for Other (See Comment) (Blood glucose >140 fasting). Dose reduction 100 Tablet 3 01/04/20 25 Active blood sugar diagnostic (PhormTouch Verio test strips) StripIndications:T ype 2 diabetes mellitus with other circulatory complication, without long-term current use of insulin USE 1 STRIP TO CHECK GLUCOSE ONCE DAILY DX: E11.59 100 Each 5 03/02/20 25 Active Active Problems Problem Noted Date Diagnosed [...] artery disease of n ative artery of [place] heart with stable angina pectoris 07/04/2008 Overview [...] 08:29 AM ANIONGAP 12 08/18/2016 08:29 AM Resolved Problems Problem Noted Date Diagnosed Date [...] unspecified 09/15/2013 GERD (gastroesophageal reflux disease) 07/16/2021 Encounters Date Type Department Care Team Description 03/02/[address] [address] Jose Hendricks MD Type 2 diabetes mellitus with other circulatory complication, without long-term current use of insulin ([facility]) 02/20/2025 External Device Data STL ABSTRACTION Provider, Abstract 02/13/2025 External Device Data STL ABSTRACTION Provider, Abstract from Last 3 Months Immunizations Immunization Administration Dates Next Due INFLUENZA VACCINE HIGH DOSE QUADRIVALENT 65 YR UP PF IM 04/01/2023,03/28/2021,04/19/2020,2019 INFLUENZA VACCINE INACTIVATE D ADJUV, (65 YR UP), 0.5ML (PF), IM 03/31/2024 INFLUENZA VACCINE QUADRIVALE NT ADJ 65 YR UP PF IM 04/02/2022 Influenza Seasonal Unspecifi ed Formulation IM 07/09/2008,07/09/2008 Influenza Seasonal Unspecifi ed Formulation PF IM 03/29/2013,04/04/2012,05/18/2011,2009 Influenza Vaccine High Dose 65+ Yrs IM 03/29/2019,03/29/2019,04/05/2018,2017,03/12/2017,03/12/2017,04/07/2016,1 Influenza Vaccine Split 3+ Yrs PF IM 02/2013,04/04/2012,05/18/2011,2009 Pneumococcal 7-valent conjug ate vaccine IM 07/09/2008,07/09/2008 Family History Medical History Relation Name Comments Heart Disease Brother 1 Heart Disease Brother 2 cinda Heart Disease Father Healthy Mother Breast Cancer Other paunt x 2 Cancer Sister stomach Hypertension Son Colon Cancer Neg Hx Relation Name Status Comments Brother 1 Brother 2 cinda Alive Daughter Father Mother Other paunt x 2 Alive Sister Son Social History Tobacco Use Types Packs/Day Years Used Date Smoking Tobacco: Former Cigarettes Q uit: 06/21/1999 Passive Smoke Exposure: Past Smokeless Tobacco: Former Quit: 06/21/1999 Tobacco Cessation:Counseling Given: No Alcohol Use Standard Drinks/Week Comments No 0 (1 standard drink = 0.6 oz pur e alcohol) Financial Resource Strain Answer Date R ecorded How hard is it for you to pa y for the very basics like food, housing, medical care, and heating? Not hard at all 06/26/2022 Food Insecurity Answer Date Recorded In the past 12 months, have you worried that your food would run out before you had money to buy more? Never true 06/26/2022 In the past 12 months, did y ou run out of food and didn't have money to buy more? Never true 06/26/2022 Transportation Needs Answer Date Record ed In the past 12 months, has l ack of transportation kept you from medical appointments or from getting medications? 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 Gender Identity Not on file Sexual Orientation Not on file Last Filed Vital Signs Vital Sign Reading Time Taken Comments Blood Pressure 110/72 01/03/2025 12:57 PM CDT Pulse 97 01/03/2025 12:57 PM CDT Temperature 36.2 C (97.2 F) 01/03/2025 12:57 PM CDT Respiratory Rate 18 01/03/2025 12:57 PM CDT Oxygen Saturation 96% 01/03/2025 12:57 PM CDT Inhaled Oxygen Concentration - - Weight 89.4 kg (197 lb) 01/03/2025 12:57 PM CDT Height 177.8 cm (5' 10 ) 01/03/2025 12:57 PM CDT Body Mass Index 28.27 01/03/2025 12:57 PM CDT Plan of Treatment Upcoming Encounters Date Type Department Care Team (Late st Contact Info) Description 08/01/2025 2:20 PM SHAG TRUCK DRIVER Office Visit [address] [address] Jose Hendricks MD [address] [address] Health Maintenance Due Date Last Done Comments DTAP/TDAP/TD VACCINES (1 - Tdap) 1959 PNEUMOCOCCAL VACCINE 50+ YEA RS (1 of 2 - PCV) 1959 07/09/2008, 07/09/2008 ZOSTER VACCINE (1 of 2) 1990 RSV VACCINE (60+ or ) (1 - 1-dose 75+ series) 2015 COLORECTAL SCREENING 05/20/2020 05/20/2017 DIABETES ANNUAL FOOT EXAM 10/03/20232022, 02/25/2021, 02/25/2021, Additional history exists INFLUENZA VACCINE (#1) 2025 , 04/01/2023, 04/02/2022, Additional history exists DIABETES HBA1C Q 6 MONTHS 05/31/20252024, 11/29/2024, 07/19/2024, Additional history exists DIABETES MICROALBUMIN ANNUAL SCREEN 07/19/2025 07/19/2024, 06/30/2023, 10/02/2022, Additional history exists LDL CHOLESTEROL ANNUAL 07/19/2025 , 06/30/2023, 01/04/2023, Additional history exists Traditional Medicare (ACO) A nnual Wellness Visit 07/20/2025 07/19/2024, 06/30/2023, 06/26/2022 DIABETES ANNUAL RETINAL EXAM 11/10/2025, 11/10/2024, 10/01/2023, Additional history exists DIABETES: A1C (Auto Order) 11/29/202511/29, 11/29/2024, 07/19/2024, Additional history exists Medical Devices Implanted Type Area Road Monkey Device Identifier Shelf Expiration Date Model / Serial / Lot 8fr Flexima Nephrostomy Catheter-2014 Implanted:Qty: 1 on 04/15/2015 by Harshad Monroe MD Catheter Left: Abdomen [employer] 12/30/2017 [id number] / / [id number] 8fr Flexima Nephrostomy Catheter-2014 Implanted:Qty: 1 on 04/15/2015 by Harshad Monroe MD Catheter Right: Abdomen [employer] 12/10/2017 [id number] / / [id number] Sealant Floseal W/ Adptr 10ml [id number] - [id number] Implanted:Qty: 1 on 04/08/2015 by Jefe Hearn MD Sealant N/A: Abdomen [employer] 05/20/2016 [id number] / / [id number] Procedures Procedure Name Priority Date/Time Associated Diagnosis Comments HEMOGLOBIN A1C Routine 11/29/2024 9:08 AM CDT Type 2 diabetes mellitus without complication, without long-term current use of insulin ([facility]) HM DIABETES EYE EXAM Routine 11/10/2024 12:44 PM CDT MICROALBUMIN/CREATI NINE RATIO, RANDOM UR Routine 07/19/2024 4:08 PM SHAG TRUCK DRIVER Type 2 diabetes mellitus with other circulatory complication, without long-term current use of insulin ([facility]) LIPID PANEL Routine 07/19/2024 3:11 PM SHAG TRUCK DRIVER Type 2 diabetes mellitus with other circulatory complication, without long-term current use of insulin ([facility]) from Last 3 Months or Most Recently Relevant to Health Maintenance Results * (ABNORMAL) HEMOGLOBIN A1C (11/29/2024 9:08 AM CDT) HEMOGLOBIN A1C 6.3(H) <5.7 % [facility] Comment: For someone without known diabetes, a hemoglobin A1c value between 5.7% and 6.4% is consistent with prediabetes and should be confirmed with a follow-up test. For someone with known diabetes, a value <7% indicates that their diabetes is well controlled. A1c targets should be individualized based on duration of diabetes, age, comorbid conditions, and other considerations. This assay result is consistent with an increased risk of diabetes. Currently, no consensus exists regarding use of hemoglobin A1c for diagnosis of diabetes for children. ESTIMATED AVERAGE GLUCOSE (MG/DL) 134 mg/dL [facility] ESTIMATED AVERAGE GLUCOSE (MMOL/L) 7.4 mmol/L [facility] Comment: Test Performed at: [facility] [address] [facility] [place] [address] Jesse Reynoso MD Blood 11/29/2024 9:08 AM CDT 11/30/2024 4:25 AM CDT Jose Hendricks MD CHEMISTRY ORDERABLES Moni l Result [facility] [phone] [employer] [address] [employer] [place], [employer] [address] * (ABNORMAL) DIABETES EYE EXAM (11/10/2024 12:44 PM CDT) us Abstract Provider HEALTH MAINTENANCE Edited Resu lt - Final * MICROALBUMIN/CREATININE RATIO, RANDOM UR (07/19/2024 4:08 PM SHAG TRUCK DRIVER) Creatinine, Urine 157 20 - 320 mg/dL [facility] MICROALBUMIN, URINE 0.5 See Note: mg/dL [facility] Comment: Reference Range: Reference Range Not established MICROALBUMIN/CREAT RATIO, UR 3 <30 mg/g creat [facility] Comment: The ADA defines abnormalities in albumin excretion as follows: Albuminuria Category Result (mg/g creatinine) Normal to Mildly increased <30 Moderately increased 30-299 Severely increased > OR = 300 The ADA recommends that at least two of three specimens collected within a 3-6 month period be abnormal before considering a patient to be within a diagnostic category. Test Performed at: [facility] [address] [place] [address] Jesse Reynoso MD Urine URINE SPECIMEN OBTAINED BY CLEAN CATCH PROCEDURE / Unknown 07/19/2024 4:08 PM SHAG TRUCK DRIVER 07/21/2024 6:52 AM SHAG TRUCK DRIVER Jose Hendricks MD URINE ORDERABLES Final Re sult [facility] [phone] [employer] [address] [place] [address] * (ABNORMAL) LIPID PANEL (07/19/2024 3:11 PM SHAG TRUCK DRIVER) CHOLESTEROL 152 <200 mg/dL [facility] HDL 42 > OR = 40 mg/dL [facility] TRIGLYCERIDE 350(H) <150 mg/dL [facility] Comment: If a non-fasting specimen was collected, consider repeat triglyceride testing on a fasting specimen if clinically indicated. Leno et al. J. of Clin. Lipidol. 2015;9:129-169. LDL CALCULATED 68 mg/dL (calc) [facility] Comment: Reference range: <100 Desirable range <100 mg/dL for primary prevention; <70 mg/dL for patients with CHD or diabetic patients with > or = 2 CHD risk factors. LDL-C is now calculated using the Michael calculation, which is a validated novel method providing better accuracy than the Friedewald equation in the estimation of LDL-C. Roger NICKERSON et al. IZZY. 2013;310(19): 2993-5771 (http://education.Owlparrot/faq/BCA450) CHOL/HDL RATIO 3.6 <5.0 (calc) [facility] NON-HDL CHOLESTEROL 110 <130 mg/dL (calc) [facility] Comment: For patients with diabetes plus 1 major ASCVD risk factor, treating to a non-HDL-C goal of <100 mg/dL (LDL-C of <70 mg/dL) is considered a therapeutic option. Test Performed at: [facility] [address] [facility] [place] [address] Jesse Reynoso MD Blood 07/19/2024 3:11 PM SHAG TRUCK DRIVER 07/21/2024 7:36 AM SHAG TRUCK DRIVER Jose Hendricks MD CHEMISTRY ORDERABLES Moni l Result Performing Organization Address City/State/[facility] Co de Phone Number [facility] [phone] [employer] [address] [facility] [place] [address] from Last 3 Months or Most Recently Relevant to Health Maintenance Insurance MEDICAID [place] MEDICARE PART A AND B Care Teams Block Making Machine Operator Relationship Specialty Start Date End Date Jose Hendricks MD [address] [address] PCP - General Family Practice 07/16/21
--- OUTSIDE RECORDS SUMMARY | 2025-04-09 12:03 | XMS_ITS | Encounter Summary ---
Author Organization 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
--- NOTE | 2025-04-09 13:06 | ECG_ITS ---
[facility] Test Date: 2025-04-09 Pat Name: Landen Moya Department: Room: Gender: Male Leather Belt Maker: : [id number] Requested By: Jose Grajeda Order Number: [id number] Jimenez MD: Roxanne Santiago M.D. Measurements Intervals Ferguson Rate: 67 P: -5 OH: 211 QRS: -65 QRSD: 114 T: -12 QT: 387 QTc: 409 Interpretive Statements SINUS RHYTHM WITH FIRST DEGREE AV BLOCK LEFT AXIS DEVIATION [QRS AXIS < -30] RIGHT BUNDLE BRANCH BLOCK [120+ ms QRS DURATION, UPRIGHT V1, 40+ ms S IN I/aVL/V4/V5/V6] MODERATE VOLTAGE CRITERIA FOR LVH, CONSIDER NORMAL VARIANT [MEETS CRITERIA IN ONE OF: R(aVL), S(V1), R(V5), R(V5/V6)+S(V1)] POSSIBLE ANTERIOR MYOCARDIAL INFARCTION , OF INDETERMINATE AGE [30 ms Q WAVE IN V3/V4, OR R < 0.2 mV IN V4] No previous ECG available for comparison Electronically Signed On 04-10-2025 19:20:56 CDT by Roxanne Santiago M.D. [email or web address]
--- NOTE | 2025-04-09 14:30 | MRR_ITS ---
PROCEDURE INFORMATION: Exam: MR Cervical Spine Without Contrast Exam date and time: 04/09/2025 3:34 PM Age: 84 years old Clinical indication: Injury or trauma; Fall; Fracture, traumatic injury; Location of nonunion fracture not specified; Additional info: Known FX, neurosurg request to see if needs surgery TECHNIQUE: Imaging protocol: Magnetic resonance imaging of the cervical spine without contrast. COMPARISON: CT cervical spin wo con* [id number] 04/09/2025 12:15 PM FINDINGS: Bones/joints: Normal alignment. Tiny fracture posteroinferior corner of C4 is seen but much more conspicuously displayed on CT. Vertebral body heights are intact. Fracture through the left articular pillar C4 which is ankylosed to the pillar of C3 is evident as a faint dark line accompanied by bone marrow edema in both articular pillars. There is a thin T2 hyperintense fluid collection in the dorsum of the thecal sac from C3 to C5-C6 most likely due to disruption of the posterior longitudinal ligament at C4-C5. There is also anterior paraspinal edema or fluid from C3-C7 attributable to disruption of the anterior longitudinal ligament mentioned on CT. Mild diffuse edema is noted in paraspinal upper cervical musculature from midline to the left midline from skull base to about C5. No intramuscular fluid collections. Spinal cord: Normal signal. No cord compression. C2-C3: Normal disc height. 2 mm noncompressive disc osteophyte complex. Borderline spinal stenosis without cord compression. Adequately patent foramina. C3-C4: Mild disc space narrowing with increased signal within the disc. This raises suspicion for disc disruption. Adequately patent canal and foramina. C4-C5: Normal disc height. Disrupted posterior longitudinal ligament. Underlying posterior 2 mm disc osteophyte complex. Qxms-oj-cbbalquo central spinal stenosis with subtle spinal cord compression attributed to disc osteophyte complex in the dorsal epidural fluid collection level. Midline AP thecal sac diameter is about 8 mm. Lvowhybt-yx-ohvuzq left foramina stenosis due to uncovertebral and facet joint arthrosis. Adequately patent right foramen. C5-C6: Zdhd-re-whdyzuxs chronic disc space narrowing. Broad posterior 3 mm disc osteophyte complex. Adequately patent central canal. Tsjkuyky-hk-dsmsbp bilateral foramina stenosis due to uncovertebral and facet joint arthrosis. C6-C7: Rtcs-um-ziullpjc chronic disc space narrowing greatest posteriorly. Broad posterior 3 mm disc bulge. Adequately patent canal. Moderate to severe bilateral foramina stenosis due to uncovertebral joint arthrosis, hanfp-khvztvz-gmue-left. C7-T1: Mild posterior disc space narrowing. Normal disc contour. Adequately patent central canal and foramina. Soft tissues: See Bones/joints finding. Vasculature: Expected flow voids in the vertebral arteries. MR/MR cervical spin wo con* [id number] IMPRESSION: 1. Fractures through posteroinferior vertebral body at C4 in the left C4 lateral mass are accompanied by evidence of disruption of anterior and posterior longitudinal ligaments at C4-C5 and likely disc disruption at C3-C4. 2. Multilevel muscular strains and sprains of the interspinous ligaments from C2-C5. 3. Mild spinal stenosis from approximately C3-C4 to C5-C6 due to combination of degenerative changes in a thin dorsal epidural hematoma.
[2025-04-09] MEDS: morphine 4 mg/mL SDV 1 mL 8 MG IM (17:18)
--- NOTE | 2025-04-09 17:21 | W.ED.NECK ---
HPI - Neck Pain/Injury General: Chief Complaint: Neck Pain/Injury Stated Complaint: Fell off a stool last wednesday having some pay Time Seen by Provider: 04/09/25 11:41 History of Present Illness: 84 yo M presents with persistent neck pain one week after a fall in the garage when a cart tipped, causing him to strike the back of his neck on a toolbox. There was reported loss of consciousness at the time of the fall. Pain is localized to the midline lower cervical region and radiates to the left shoulder; does not travel down the arm or legs. Pain is worse with movement; tolerable while lying down. Family reports he has been short of breath recently. Pt denies knowing of any drug allergies. He requests pain relief and inquires about cortisone; agrees to start with pills. He is able to move his neck and left shoulder without visible increase in pain. Vitals described as stable in triage. Related Data Previous Rx's ?Medication ?Instructions ?Recorded morphine 15 mg tablet,extended 15 mg PO Q12H PRN moderate pain 04/09/25 release #30 tabs Allergies Allergy/AdvReac Type Severity Reaction Status Date / Time No Known Allergies Allergy Verified 04/09/25 10:49 Physical Exam Const: COMMON NORMALS: no acute distress, patient oriented x3 and alert HENMT: COMMON NORMALS: normocephalic and atraumatic HEAD & SCALP: normocephalic and atraumatic Eye: COMMON NORMALS: Equal, round and reactive pupils present, EOMs intact bilaterally and no scleral icterus PUPIL: Yes Equal, round and reactive pupils present Neck/C-Spine: OTHER: Midline cervical spine tenderness overlying the mid cervical region; no step-off or deformity; full range of motion (ROM) without apparent increase in pain or radicular symptoms of loss of strength or sensation or tingling. Resp: COMMON NORMALS: normal respiratory effort and No retractions Cardio: COMMON NORMALS: regular rate, regular rhythm and No murmurs present (Cardio) RATE: regular rate RHYTHM: regular rhythm GI: COMMON NORMALS: Normal to inspection, nondistended, normoactive bowel sounds present, Soft to palpation and non-tender PALPATION: Yes Soft to palpation Neuro: COMMON NORMALS: patient oriented x3 SENSORIUM/ORIENTATION: Yes alert Skin: COMMON NORMALS: no rashes or lesions noted GENERAL SKIN EXAM: no rashes or lesions noted Course Vital Signs: Vital signs: Vital Signs Temperature 98.3 F 04/09/25 10:46 Pulse Rate 75 04/09/25 10:46 Respiratory Rate 18 04/09/25 18:38 Blood Pressure 183/67 04/09/25 17:05 Pulse Oximetry 98 04/09/25 18:38 Oxygen Delivery Me thod Room Air 04/09/25 13:16 MDM - Neck Pain/Injury Medical Decision Making 84 yo M with persistent neck pain radiating to L shoulder one week post fall with reported LOC. Pain localized to lower cervical midline; worse with movement, improved supine. Family notes recent SOB. NKDA. 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 He is here because pain persist and will not go away. Upon arrival, he was placed in a c-collar pending imaging results. CT scan showed what appeared to be unstable fractures of C4 and C5. He was given oral Percocet for his pain as well as a single dose of IM morphine. I spoke with on-call orthospine, Dr. Grant who advised the patient likely require surgery but he will not be able to do it as he is leaving town and recommended that we contact neurosurgery at another facility. I spoke with Dr. Ochoa, neurosurgery, at [facility], who recommended getting MRI to help clarify whether surgical or nonsurgical intervention was ideal for this patient. MRI without contrast was performed and spoke again with Dr. Ochoa who recommends that patient will likely do fine in a c-collar and can follow-up in 2 to [address] Grant locally or with him in [place]. He will be given a course of pain medication and discharged in stable condition. Patient is agreeable to the plan. Lab Data Radiology Impressions Cervical Spine CT 04/09/25 11:45 IMPRESSION: 1. Nondisplaced fractures involving the LEFT ankylosed posterior elements at C4-5 extending into the articulating facets and lamina. This also appears to extend through the C4-5 disc space with disruption of the anterior and posterior longitudinal ligaments. Additional nondisplaced fracture involving the LEFT posterior inferior corner C4. Recommend spine surgery consultation. 2. See bookmarked images 3. Mild to moderate central canal stenosis worse at C5-6 due to disc osteophyte complex. Notified Jose Devine DO at 04/09/2025 1:[address] 04/09/25 11:45 IMPRESSION: 1. No evidence of intracranial hemorrhage or mass effect. 2. Moderate small vessel changes with moderate parenchymal volume loss. 3. Vascular calcification. 4. No acute intracranial findings. Chest/Abdomen/Pelvis CT 04/09/25 11:55 IMPRESSION: No acute traumatic findings in the chest abdomen or pelvis. Cervical Spine MRI 04/09/25 14:30 IMPRESSION: 1. Fractures through posteroinferior vertebral body at C4 in the left C4 lateral mass are accompanied by evidence of disruption of anterior and posterior longitudinal ligaments at C4-C5 and likely disc disruption at C3-C4. 2. Multilevel muscular strains and sprains of the interspinous ligaments from C2-C5. 3. Mild spinal stenosis from approximately C3-C4 to C5-C6 due to combination of degenerative changes in a thin dorsal epidural hematoma. ADDENDUM: 04/09/25 174 THIS REPORT CONTAINS FINDINGS THAT MAY BE CRITICAL TO PATIENT CARE. The findings were verbally communicated via telephone conference with JOSE DEVINE at 5:38 PM CDT on 04/09/2025. The findings were acknowledged and understood. All radiology interpretation(s) finalized by discharge EKG Data EKG 1: Interpretation: Time?1306?sinus rhythm with right bundle branch block pattern, rate of 67, no ST segment elevation or depression, no T wave inversions, QTc = 402 Discharge Plan Discharge Patient Disposition: Home Clinical Impression: Cervical spine fracture Condition: Stable Prescriptions: New morphine 15 mg tablet extended release 15 mg PO Q12H PRN (Reason: moderate pain) Qty: 30 0RF Discharge Orders: Discharge ED (Routine); Ordered 04/09/25 Ordered By: Jose Devine Other Ambulatory Orders: DME: Miscellaneous (Order) Location: None Selected Ordered By: Jose Devine Referrals: Nico Grant DO [Physician, Orthopedics] - 2 weeks Clinical Impression: Cervical spine fracture Gregorio Espana [Family Provider, Physicians Professor Of Engineering] Pravin Bridges MD [Primary Care Provider, Neurology] Discharge Diet: Usual diet Discharge Activity: Increase activity as tolerated Patient Instructions: Cervical Fracture (ED), Soft Cervical Collar (ED), Patient Portal & Raymundo Instructions Activity Restrictions/Additional Instructions: Please wear the cervical spine collar whenever possible and take your prescribed morphine as needed for pain. Please call to be seen in 2 to 4 weeks with the spinal surgeon listed on the paperwork. If you have worsening symptoms before then please feel no hesitation to return to the emergency department. Your MRI appears to show a stable fracture which will not require surgical intervention and it should heal on its own if you do not further injury. Furthermore, it appears that much of your pain is coming from the muscular injury and not necessarily from the cervical spine fracture. Print Language: Canadian Coding Level of Care Code ED Pit Supervisor for Joie Villasenor
== END 2025-04-09 19:17 | disposition home or self-care (01) ==
PROVIDERS: Emergency Provider Student in an Organized Health Care Education/Training Program; Family Provider Physician Assistant Medical; PCP Psychiatry & Neurology Neurology
DX: S12.301A Unspecified nondisplaced fracture of fourth cervical vertebra, initial encounter for closed fracture (principal); S12.401A Unspecified nondisplaced fracture of fifth cervical vertebra, initial encounter for closed fracture; W17.89XA Other fall from one level to another, initial encounter
CPT/HCPCS: 70450; 71250; 72125; 72141; 74176; 93005; 96372; 97760; 99284; J2270; J9999; L0172

== ENCOUNTER 2025-04-15 10:07 | Emergency (ER) | payer MEDICARE, MEDICAID, SELFPAY ==
--- OUTSIDE RECORDS SUMMARY | 2025-04-11 15:40 | XMS_ITS | Encounter Summary ---
Author Organization [facility] Address [address] [place] [address] Care Team Providers Care Dairy Technologist Name Role Phone Jose Hendricks MD Primary Care Provider [phone] Reason for Visit * Reason Comments ER Follow Up OZH- Fractures in C4 & C5 Wanting to know how much meds can take t ogether? Nausea from Morphine Encounter Details Date Type Department Care Team (Late st Contact Info) Description 04/11/2025 3:40 PM CDT Video Visit [facility] [place] [address] [address] Arpita He, [facility] [address] [address] Other closed nondisplaced fracture of fourth cervical vertebra with routine healing, subsequent encounter (Primary Dx); Other closed nondisplaced fracture of fifth cervical vertebra with routine healing, subsequent encounter; Acute nausea with nonbilious vomiting Social History Tobacco Use Types Packs/Day Years Used Date Smoking Tobacco: Former Cigarettes Q uit: 06/21/1999 Passive Smoke Exposure: Past Smokeless Tobacco: Former Quit: 06/21/1999 Alcohol Use Standard Drinks/Week Comments [...] on file Legal Sex Male 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 Gender Identity Not on file Sexual Orientation Not on file documented as of this encounter Last Filed Vital Signs Vital Sign Reading Time Taken Comments Blood Pressure - - Pulse - - Temperature - - Respiratory Rate - - Oxygen Saturation - - Inhaled Oxygen Concentration - - Weight 90.7 kg (200 lb) 04/11/2025 3:43 PM CDT Height 177.8 cm (5' 10 ) 04/11/2025 3:43 PM CDT Body Mass Index 28.7 04/11/2025 3:43 PM CDT documented in this encounter Progress Notes * Arpita He, ANETA - 04/11/2025 3:42 PM CDT [facility] [place] 04/11/2025 Subjective: Landen Moya is a 84 y.o. male who comes today for evaluation of ER Follow Up (OZH- Fractures in C4 & C5) and Wanting to know how much meds can take together? (Nausea from Morphine) . History of Present Illness The patient is an 84-year-old male who presents to the clinic today for an ER follow-up. He was seen in the emergency department at [facility] on 04/09/2025 with persistent neck pain 1 week post fall in the garage where a cart tipped causing him to strike the back of his neck on his toolbox. There was reported loss of consciousness at the time of the fall. Pain was localized to the midline lower cervical region and radiated to the left shoulder, worsening with movement but tolerable whilelying down. His family also reported he had been short of breath recently. A CT scan showed unstable fractures at C4 and C5. He was given oral Percocet for pain management and a single dose of intramuscular morphine. Dr. Fan, an orthopedic volunteer specialist, advised that surgery might be necessary but was unable to perform the procedure due to travel commitments. He recommended consulting neurosurgery at another facility. Subsequently, they consulted with Dr. Ochoa, a neurosurgeon at [facility], who recommended an MRI to determine the appropriate intervention.An MRI without contrast was performed, and Dr. Ochoa concluded that the patient would likely benefit from a C-collar, with a follow-up scheduled in 2 to 4 weeks either locally with Dr. Fan or in [place]. He was discharged home in stable condition with a prescription for morphine 15 mg extended-release tablets every 12 hours as needed for pain. He is accompanied by his daughter. He has not yet scheduled an appointment with neurosurgery. His daughter reports that he has been experiencing nausea approximately 2 hours after taking morphine, which he reports is not effectively managing his pain. They are considering supplementing his treatment with ibuprofen but are concerned about potential stomach bleeding, even though he has no history of ulcers or other gastrointestinal issues. His condition has improved since yesterday, although he still experiences pain. His daughternotes that his color has improved compared to the previous day. He has been taking Tums and has notexperienced any vomiting. His daughter is seeking advice on the safe dosage of ibuprofen that can be taken concurrently with his other medications. She also mentions that he does not wish to continuetaking morphine for an extended period but is reluctant to endure the pain. PAST SURGICAL HISTORY: Prostatectomy Review of Systems Constitutional: Negative for chills and fever. Respiratory: Negative for shortness of breath. Cardiovascular: Negative for chest pain. Gastrointestinal: Positive for nausea. Musculoskeletal: Positive for neck pain. Negative for myalgias. All other systems reviewed and are negative. Objective: There were no vitals filed for this visit. Physical Exam Constitutional: Comments: C collar in place HENT: Head: Normocephalic. Neurological: Mental Status: He is alert. Psychiatric: Behavior: Behavior normal. Past medical history, surgical history and social history reviewed. 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 Surgery 03-13-14 Decompression of the nerve roots of the cauda equina. Evacuation of extradural and intradural abscess L2-S1Use of intraoperative fluoroscopy Altered mental status Arthropathy, unspecified, site unspecified Back pain Basal cell carcinoma CAD (coronary artery disease) 07/04/2008 Clostridium difficile infection 04/16/2015 Coronary artery disease Positive stress test 06/27/08 Dementia without behavioral disturbance (CMS/HCC) 04/13/2015 Diabetic peripheral neuropathy Diabetic peripheral neuropathy 09/13/2012 Eczema Elevated PSA, greater than or equal to 20 ng/ml Former smoker quit 2000 cigarettes/cigars GERD (gastroesophageal reflux disease) Hyperlipidemia 04/05/2008 Hyponatremia Intermediate coronary syndrome Pneumonia Prostate CA Radicular low back pain Radiculopathy of lumbar region 03/12/2014 Thecal abscess 03/13/2014 Thecal abscess 03/13/2014 vs possible meningitis Type II or unspecified type diabetes mellitus without mention of complication, not stated as uncontrolled 01/14/2012 diet control Unspecified disorder of lipoid metabolism Procedures Assessment/Plan: ICD-10-CM ICD-9-CM 1. Other closed nondisplaced fracture of fourth cervical vertebra with routine healing, subsequent encounter S12.391D V54.17 2. Other closed nondisplaced fracture of fifth cervical vertebra with routine healing, subsequent encounter S12.491D V54.17 3. Acute nausea with nonbilious vomiting R11.2 787.01 ondansetron (ZOFRAN ODT) 4 mg Tablet, Rapid Dissolve Assessment & Plan 1. C4-C5 Fracture - Persistent neck pain following a fall in the garage, resulting in fractures at C4 and C5. Pain islocalized to the midline lower cervical region and radiates to the left shoulder, worsening with movement but tolerable while lying down. - MRI without contrast was performed, and it was recommended that the patient will likely do fine in a c-collar. - A referral to Dr. Grant's office has been initiated for further evaluation and potential surgicalintervention. If there is no communication from Dr. Grant's office within a 2 to 3-week timeframe, he is advised to inform us so we can follow up. 2. Nausea: - Significant nausea within 2 hours of taking morphine, which is not adequately controlling his pain. - A prescription for Zofran has been provided to manage his nausea. - He is advised to take gykh-opm-dihdyze pain medications as needed, with a maximum daily intake [id number] mg of Tylenol. If necessary, he may take ibuprofen 600 mg once or twice daily for a day or two, but this should be avoided due to potential kidney damage, especially given his history of urinaryissues and prostatectomy. Patient's identity confirmed yes Patient gave verbal consent to have these services billed to their insurance and expressed understanding that co-insurance and deductible may apply: yes Patient was located At home This encounter was completed via two-way synchronous audio and video communication. ANGEL Munoz The author of this note, patient (or authorized consumer sales representative), and all other persons present consent to the audio recording of this visit for charting documentation purposes. This note was automatically generated by a [employer] AI technology ([employer]), reviewed, edited, and finalized by ANETA Munoz. documented in this encounter Plan of Treatment Upcoming Encounters Date Type Department Care Team (Late st Contact Info) Description 05/01/2025 2:30 PM RESIDENTIAL SUPPORT SPECIALIST Office Visit [facility] [address] [place] [phone] Ermelinda Corona NP [address] [place] [phone] 08/01/2025 2:20 PM RESIDENTIAL SUPPORT SPECIALIST Office Visit [facility] [address] [address] Jose Hendricks MD [address] [phone] documented as of this encounter Visit Diagnoses Diagnosis Other closed nondisplaced fracture of fourth cervical vertebra with routine healing, subsequent encounter- Primary Other closed nondisplaced fracture of fifth cervical vertebra with routine healing, subsequent encounter Acute nausea with nonbilious vomiting documented in this encounter Additional Health Concerns Assessment Noted Time PHQ-9 Depression Total Score: 2 07/19/19 25 2:11 PM RESIDENTIAL SUPPORT SPECIALIST documented as of this encounter Care Teams Dairy Technologist Relationship Specialty Start Date End Date Jose Hendricks MD [address] [phone] PCP - General Family Practice 07/16/21 documented as of this encounter
--- OUTSIDE RECORDS SUMMARY | 2025-04-13 09:20 | XMS_ITS | Encounter Summary ---
Author Organization [facility] Address [address] [place] [address] Care Team Providers Care Research Anthropologist Name Role Phone Jose Hendricks MD Primary Care Provider [phone] Reason for Visit * Reason Comments Neck Pain Encounter Details Date Type Department Care Team (Late st Contact Info) Description 04/13/2025 9:20 AM CDT - 04/13/2025 2:30 PM CDT Emergency [facility] Emergency Medicine [address] [place], [place] [id number] [address] [place] [address] Johan Newman MD [address] [place] [address] [place] [address] Other closed nondisplaced fracture of fifth cervical vertebra, initial encounter ([facility]) (Primary Dx) Discharge Disposition: Home or Self Care Social History Tobacco Use Types Packs/Day Years [...] of Transportation (Non-Medical) Not on file 06/26/2022 Food Insecurity Answer Date Recorded Do you find you are eating l ess than you should because you can t pay for food? No 04/13/2025 Transportation Needs Answer Date Record ed Have you gone without health care because you didn t have a way to get there? 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 No 2024 Housing Stability Answer Date Recorded Do you worry you won t have a steady place to sleep or struggle to pay rent or mortgage? No 04/13/2025 Utility Needs Answer Date Recorded Do you have difficulty payin g for utility costs (electric, water or gas bills)? No 04/13/2025 Medication Needs Answer Date Recorded Have you skipped taking medi cation due to cost or worry you can t afford new medications? No 04/13/2025 Feeling Safe Answer Date Recorded Are you in a relationship wi th someone who hurts you emotionally and/or physically? No 04/13/2025 Sex and Gender Information Value Date Recorded Sex Assigned at Not on file Legal Sex Male 12:22 AM [employer] EM[employer]OYEE Gender Identity Not on file Sexual Orientation Not on file documented as of this encounter Last Filed Vital Signs Vital Sign Reading Time Taken Comments Blood Pressure 165/73 04/13/2025 2:15 PM CDT Pulse 77 04/13/2025 2:15 PM CDT Temperature 36.7 C (98 F) 04/13/2025 9:20 AM CDT Respiratory Rate 20 04/13/2025 2:15 PM CDT Oxygen Saturation 97% 04/13/2025 2:15 PM CDT Inhaled Oxygen Concentration - - Weight 82.9 kg (182 lb 12.8 oz) 04/13/2025 9:20 AM CDT Height 177.8 cm (5' 10 ) 04/13/2025 9:20 AM CDT Body Mass Index 26.23 04/13/2025 9:20 AM CDT documented in this encounter Discharge Instructions * Discharge Instructions* Johan Newman MD - 04/13/2025 1:47 PM CDT Have your PCP schedule pain management as soon as possible. * Attachments The following attachments cannot be sent through Care Everywhere. * Neck Fracture (Croatian) * Naloxone Nasal [place] (Croatian) * Baclofen (Croatian) * Hydrocodone Combination Products (Croatian) documented in this encounter Medications at Time of Discharge HYDROcodone-acetami nophen (NORCO) 5-325 mg tabletIndications:O ther closed nondisplaced fracture of fifth cervical vertebra, initial encounter ([facility]) Take 1-2 Tablets by mouth every 6 hours as needed for Pain. Max Daily Amount: 8 Tablets 30 Tablet 04/13/2025 baclofen (LIORESAL) 5 mg tablet Take 1 Tablet (5 mg) by mouth 3 times daily for 10 days. 30 Tablet 04/13/2025 04/23/20 25 naloxone (NARCAN) 4 mg/spray [place], Non-Aerosol EMERGENCY USE ONLY: Administer 1 spray (4 mg) in one nostril one time. May repeat in alternating nostrils every 2-3 min until responsive or EMS arrives. 2 Each 3 04/13/2025 morphine (MS CONTIN) 15 mg Controlled Release tabletIndications:O ther closed nondisplaced fracture of fourth cervical vertebra with routine healing, subsequent encounter,Other closed nondisplaced fracture of fifth cervical vertebra with routine healing, subsequent encounter Take 1 Tablet (15 mg) by mouth every 12 hours. Max Daily Amount: 30 mg 14 Tablet 04/11/2025 acetaminophen (TYLENOL) 500 mg tablet Take 500 mg by mouth every 6 hours as needed. ibuprofen (MOTRIN) 600 mg tablet Take 600 mg by mouth every 6 hours as needed for Pain, Mild. ondansetron (ZOFRAN ODT) 4 mg Tablet, Rapid DissolveIndications :Acute nausea with nonbilious vomiting Take 1 Tablet (4 mg) by mouth every 8 hours as needed for Nausea/Emesis. Dissolve tablet on top of tongue, then swallow with saliva. 30 Tablet 04/11/2025 blood sugar diagnostic (OneTouch Verio test strips) StripIndications:Ty pe 2 diabetes mellitus with other circulatory complication, without long-term current use of insulin USE 1 STRIP TO CHECK GLUCOSE ONCE DAILY DX: E11.59 100 Each 5 03/02/2025 glipiZIDE 2.5 mg tabletIndications:T ype 2 diabetes mellitus with other circulatory complication, without long-term current use of insulin Take 1 Tablet (2.5 mg) by mouth 1 time daily as needed for Other (See Comment) (Blood glucose >140 fasting). 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 100 Tablet 3 07/19/2024 metoprolol tartrate (LOPRESSOR) 25 mg tabletIndications:C oronary artery disease of pilot station artery of pilot station heart with stable angina pectoris,Benign hypertension Take 1 Tablet (25 mg) by mouth 2 times daily. 200 Tablet 3 07/19/2024 metFORMIN (GLUCOPHAGE) 1,000 mg tabletIndications:T ype 2 diabetes mellitus with other circulatory complication, without long-term current use of insulin Take 1 Tablet (1,000 mg) by mouth 2 times daily with meals. 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 100 Tablet 3 07/19/2024 fluticasone propionate (FLONASE) 50 mcg/spray [place], Suspension nasal inhalerIndications: Vertigo Administer 2 Sprays in each nostril daily. 16 Gram 04/14/2024 polyethylene glycol 3350 (MIRALAX) 17 gram/dose PowderIndications:S low transit constipation Take 1 Scoop (17 Grams) by mouth daily. Dissolve in 8 ounces of fluid and drink entire liquid 527 Gram 10/08/2023 triamcinolone acetonide (KENALOG) 0.1 % CreamIndications:Al lergic contact dermatitis due to cosmetics Apply to affected area 2 times daily. 45 Gram 1 09/07/2023 metroNIDAZOLE (METROGEL) 0.75 % GelIndications:Sakina cea, unspecified APPLY TO AFFECTED AREA TWICE DAILY 45 Gram 09/07/2023 cetirizine (ZyrTEC) 10 mg tabletIndications:A llergic rhinitis, unspecified seasonality, unspecified trigger Take 1 Tablet (10 mg) by mouth daily at bedtime. 90 Tablet 2 03/08/2023 diclofenac sodium (VOLTAREN) 1 % gelIndications:Burs itis of left shoulder,Chronic left shoulder pain Apply 2 Grams to affected area 4 times daily. 100 Gram 3 07/14/2022 aspirin (ECOTRIN EC) 81 mg Tablet, Delayed Release (E.C.) Take 81 mg by mouth daily. multivitamin (DAILY-LUCHO) tablet Take 1 Tablet by mouth daily. nitroglycerin (NITROSTAT) 0.4 mg Tablet, Sublingual Place 1 Tablet (0.4 mg) under tongue every 5 minutes as needed for Chest Pain. 30 Tablet 02/25/2021 omega-3 fatty acids-fish oil 300-1,000 mg Capsule Take by mouth daily. 12/18/2018 lancets 30 gauge 1 Lancet by [facility].(Non-Drug; Combo Route) route daily E11.65 Reli-On Ultra thin lancets. 100 Each 11 08/15/2018 lancetsIndications: Uncontrolled type 2 diabetes mellitus without complication, without long-term current use of insulin Use to check blood sugar one time daily DX: E11.65. 100 Each 1 11/02/2017 Blood-Glucose Meter KitIndications:Type 2 diabetes mellitus with complication, unspecified whether manager long term care insulin use ([facility]) Use as directed.. 1 Kit 1 10/26/2017 coenzyme Q10 Capsule Take 1 Capsule (10 mg) by mouth daily. 09/28/2017 documented as of this encounter ED Notes * Irene Garcia RN - 04/13/2025 9:36 AM CDT Patient arrived to the ED via ground ambulance complaining of neck pain. EMS states the patient hada fall a week and a half ago and was told her had a C4 and C5 fracture and was told he did not qualify for surgery and was sent homme in a neck brace and with Morphine 15 Q 12hr. Patient states the pain is 10/10 at all times and nothing is helping it. Patient family at bedside stating they wanted him taken to [facility] the patient could not handle the ambulance ride. EMS states the patient was given 2 separate doses of 50mcg Fentanyl and it dropped his oxygen in the 80s. Patient states the Fentanyl did nothing for his pain. Patient family at bedside stating something else is wrong and they want another CT scan done to make sure something wasn't missed and something to help control the patients pain better. Dr Newman notified. * Johan Newman MD - 04/13/2025 9:19 AM CDT HISTORY OF PRESENT ILLNESS Landen Moya, a 84 y.o. male presents to the ED with a Chief Complaint of Neck Pain Subjective This patient is an 84-year-old white male who presents to the emergency department with neck pain. Patient fell 10 days ago. He was sitting on a rolling stool in the garage and it came out from underneath him and he fell backwards striking his head on a cement floor. Patient did not have any significant neck pain at that time. Started developing neck pain and then finally went to [place] emergency department on Wednesday of this week and his evaluation revealed a C5 fracture. Spine surgeon didnot recommend surgery at that time. He was recommended home with a rigid collar. Patient is having severe neck pain with some radiation down the left arm. REVIEW OF SYSTEMS Review of Systems Constitutional: Negative for appetite change, chills, diaphoresis, fatigue and fever. HENT: Negative for congestion, ear pain, postnasal drip, rhinorrhea, sinus pressure and sore throat. Eyes: Negative for pain and visual disturbance. Respiratory: Negative for cough, chest tightness, shortness of breath and wheezing. Cardiovascular: Negative for chest pain, palpitations and leg swelling. Gastrointestinal: Negative for abdominal distention, abdominal pain, blood in stool, constipation, diarrhea, nausea and vomiting. Genitourinary: Negative for decreased urine volume, difficulty urinating, dysuria, flank pain, frequency, hematuria, testicular pain and urgency. Musculoskeletal: Positive for neck pain. Negative for arthralgias, back pain, joint swelling, myalgias and neck stiffness. Skin: Negative for rash. Neurological: Negative for dizziness, seizures, syncope, speech difficulty, weakness, light-headedness, numbness and headaches. Hematological: Negative for adenopathy. Psychiatric/Behavioral: Negative for behavioral problems, confusion, decreased concentration, dysphoric mood, self-injury, sleep disturbance and suicidal ideas. The patient is not nervous/anxious. All other systems reviewed and are negative. PAST MEDICAL HISTORY REVIEWED MEDICAL: Patient has a past medical history of Abscess in epidural space of lumbar spine (03/15/2014), Altered mental status, Arthropathy, unspecified, site unspecified, Back pain, Basal cell carcinoma, CAD (coronary artery disease) (07/04/2008), Clostridium difficile infection (04/16/2015), Coronary artery disease, Dementia without behavioral disturbance (CMS/HCC) (04/13/2015), Diabetic peripheral neuropathy, Diabetic peripheral neuropathy (09/13/2012), Eczema, Elevated PSA, greater than or equal to 20 ng/ml, Former smoker (quit 1999), GERD (gastroesophageal reflux disease), Hyperlipidemia (04/05/2008),Hyponatremia, Intermediate coronary syndrome, Pneumonia, Prostate CA, Radicular low back pain, Radiculopathy of lumbar region (03/12/2014), Thecal abscess (03/13/2014), Thecal abscess (03/13/2014), TypeII or unspecified type diabetes mellitus without mention of complication, not stated as uncontrolled (01/14/2012), and Unspecified disorder of lipoid metabolism. SURGICAL: Patient has a past surgical history that includes pr cystourethroscopy (N/A, 04/08/2015); pr colonoscopy flx dx w/collj spec when pfrmd (N/A, 05/20/2017); pr unlisted laparoscopy px lymphatic system (Bilateral, 04/08/2015); orthopedic surgery; back surgery; pr cabg w/arterial graft single arterial graft (07/05/2008); cl fluoro or other (06/2008); pr laminectomy w/o ffd 1/2 vert seg lumbar (N/A, 03/13/2014); pr lamnotmy incl w/dcmprsn nrv root 1 intrspc lumbr (N/A, 03/13/2014); pr unlisted procedurespine (N/A, 03/13/2014); surgical other (N/A, 03/13/2014); surgical other (N/A, 03/13/2014); pr laps surg [id number] rpbic rad w/nrv sparing robot (N/A, 04/08/2015); and pr cystourethroscopy (N/A, 04/08/2015). FAMILY: Patient's family history includes Breast Cancer in an other family member; Cancer in his sister; Healthy in his mother; Heart Disease in his brother, brother, and father; Hypertension in his son. SOCIAL: reports that he quit smoking about 25 years ago. His smoking use included cigarettes. He has been exposed to tobacco smoke. He quit smokeless tobacco use about 25 years ago. He reports that he is notcurrently sexually active. He reports that he does not drink alcohol and does not use drugs. No history on file. Social History Other Topics Concern Not on file ALLERGIES Patient has no known allergies. HOME MEDICATIONS Discharge Medication List as of 04/13/2025 2:08 PM START taking these medications Details HYDROcodone-acetaminophen (NORCO) 5-325 mg tablet Take 1-2 Tablets by mouth every 6 hours as neededfor Pain. Max Daily Amount: 8 Tablets, Disp-30 Tablet, R-0 baclofen (LIORESAL) 5 mg tablet Take 1 Tablet (5 mg) by mouth 3 times daily for 10 days., Disp-30 Tablet, R-0 naloxone (NARCAN) 4 mg/spray [place], Non-Aerosol EMERGENCY USE ONLY: Administer 1 spray (4 mg) in one nostril one time. May repeat in alternating nostrils every 2-3 min until responsive or EMS arrives., Disp-2 Each, R-3 CONTINUE these medications which have NOT CHANGED Details morphine (MS CONTIN) 15 mg Controlled Release tablet Take 1 Tablet (15 mg) by mouth every 12 hours.Max Daily Amount: 30 mgLOV: 04/11/25 DX: S12.491D, S12.391DDisp-14 Tablet, R-0 acetaminophen (TYLENOL) 500 mg tablet Take 500 mg by mouth every 6 hours as needed. ibuprofen (MOTRIN) 600 mg tablet Take 600 mg by mouth every 6 hours as needed for Pain, Mild. ondansetron (ZOFRAN ODT) 4 mg Tablet, Rapid Dissolve Take 1 Tablet (4 mg) by mouth every 8 hours asneeded for Nausea/Emesis. Dissolve tablet on top of tongue, then swallow with saliva., Disp-30 Tablet, R-0 blood sugar diagnostic (OneTouch Verio test strips) Strip USE 1 STRIP TO CHECK GLUCOSE ONCE DAILY DX: E11.59DX: E11.59Disp-100 Each, R-5 glipiZIDE 2.5 mg tablet Take 1 Tablet (2.5 mg) by mouth 1 time daily as needed for Other (See Comment) (Blood glucose >140 fasting). Dose reduction, Disp-100 Tablet, R-3 simvastatin (ZOCOR) 40 mg tablet Take 1 Tablet (40 mg) by mouth daily., Disp-100 Tablet, R-3 metoprolol tartrate (LOPRESSOR) 25 mg tablet Take 1 Tablet (25 mg) by mouth 2 times daily., Disp-200 Tablet, R-3 metFORMIN (GLUCOPHAGE) 1,000 mg tablet Take 1 Tablet (1,000 mg) by mouth 2 times daily with meals.,Disp-200 Tablet, R-3 lisinopriL (PRINIVIL) 5 mg tablet Take 1 Tablet (5 mg) by mouth daily., Disp-100 Tablet, R-3 fluticasone propionate (FLONASE) 50 mcg/spray [place], Suspension nasal inhaler Administer 2 Sprays in each nostril daily., Disp-16 Gram, R-0 polyethylene glycol 3350 (MIRALAX) 17 gram/dose Powder Take 1 Scoop (17 Grams) by mouth daily. Dissolve in 8 ounces of fluid and drink entire liquid, Disp-527 Gram, R-0 triamcinolone acetonide (KENALOG) 0.1 % Cream Apply to affected area 2 times daily., Disp-45 Gram, R-1 metroNIDAZOLE (METROGEL) 0.75 % Gel APPLY TO AFFECTED AREA TWICE DAILY, Disp-45 Gram, R-0 cetirizine (ZyrTEC) 10 mg tablet Take 1 Tablet (10 mg) by mouth daily at bedtime., Disp-90 Tablet, R-2 diclofenac sodium (VOLTAREN) 1 % gel Apply 2 Grams to affected area 4 times daily., Disp-100 Gram, R-3 aspirin (ECOTRIN EC) 81 mg Tablet, Delayed Release (E.C.) Take 81 mg by mouth daily. multivitamin (DAILY-LUCHO) tablet Take 1 Tablet by mouth daily. nitroglycerin (NITROSTAT) 0.4 mg Tablet, Sublingual Place 1 Tablet (0.4 mg) under tongue every 5 minutes as needed for Chest Pain., Disp-30 Tablet, R-0 omega-3 fatty acids-fish oil 300-1,000 mg Capsule Take by mouth daily. !! lancets 30 gauge [facility]Non-Drug; Combo Route) route daily E11.65 Reli-On Ultra thin lancets., Disp-100 Each, R-11 !! lancets Use to check blood sugar one time daily DX: E11.65., Disp-100 Each, R-1 Blood-Glucose Meter Kit Use as directed.., Disp-1 Kit, R-1 coenzyme Q10 Capsule Take 1 Capsule (10 mg) by mouth daily. !! - Potential duplicate medications found. Please discuss with provider. STOP taking these medications Clindamycin-Benzoyl Peroxide 1.2 %(1 % base) -5 % Gel Comments: Reason for Stopping: Objective PHYSICAL EXAM INITIAL VS BP: (!) 174/55 (04/13/25919), Heart Rate: 77 bpm (04/13/25919), Resp: 16 (04/13/25919), Pulse: 78 (04/13/25 1030), Temp: 98 ??F (36.7 ??C) (04/13/25919), Temp src: Temporal (04/13/25919), SpO2: 100 % (04/13/25919), Height: 5' 10 (177.8 cm) (04/13/25919), Weight: 82.9 kg (182 lb 12.8 oz) (04/13/25919), BMI (Calculated): (!) 26.22 (04/13/25919) No LMP for male patient. Physical Exam Vitals and nursing note reviewed. Constitutional: General: He is in acute distress. Appearance: Normal appearance. He is not ill-appearing. HENT: Head: Normocephalic and atraumatic. Eyes: Conjunctiva/sclera: Conjunctivae normal. Pupils: Pupils are equal, round, and reactive to light. Cardiovascular: Rate and Rhythm: Normal rate and regular rhythm. Pulmonary: Effort: Pulmonary effort is normal. No respiratory distress. Breath sounds: Normal breath sounds. Abdominal: General: Abdomen is flat. Bowel sounds are normal. Palpations: Abdomen is soft. Tenderness: There is no abdominal tenderness. Musculoskeletal: General: Normal range of motion. Cervical back: Tenderness present. Skin: General: Skin is warm and dry. Neurological: General: No focal deficit present. Mental Status: He is alert and oriented to person, place, and time. Psychiatric: Mood and Affect: Mood normal. Behavior: Behavior normal. DIAGNOSTICS LAB: CBC WITH DIFFERENTIAL - Abnormal Result Value WBC 8.3 RBC 4.14 (*) HEMOGLOBIN 13.1 (*) HEMATOCRIT 37.0 (*) MCV 89.4 MCH 31.6 MCHC 35.4 RDW 12.2 RDW-STDEV 39.8 PLATELETS 203 MPV 9.5 (*) NEUTROPHILS 77 (*) LYMPHOCYTES 13 (*) MONOCYTES 8 EOSINOPHILS 2 BASOPHILS 1 IMMATURE GRANULOCYTES 1 NEUTROPHIL ABSOLUTE 6.35 (*) LYMPHOCYTE ABSOLUTE 1.04 (*) MONOCYTE ABSOLUTE 0.64 EOSINOPHIL ABSOLUTE 0.18 BASOPHILS ABSOLUTE 0.05 IMMATURE GRANULOCYTES ABSOLUTE 0.04 COMPREHENSIVE METABOLIC PANEL - Abnormal SODIUM 131 (*) POTASSIUM 4.9 CHLORIDE 92 (*) CO2 28 CALCIUM 9.7 BUN 16 CREATININE 0.80 GLUCOSE 145 (*) TOTAL PROTEIN 7.2 ALBUMIN 4.3 BILIRUBIN TOTAL 0.3 ALKALINE PHOSPHATASE 49 AST 20 ALT 14 GFR >60 ANION GAP 11 RADIOLOGY: CT CERVICAL SPINE WO CONTRAST Radiologist Impression IMPRESSION: Please see below. Noncontrast axial images were obtained through the cervical spine. Sagittal reformations were also performed. Reason For Exam: Neck trauma (Age >= 65y). Diagnosis: See Reason for Exam. Comparison: None Findings: Straightening of the cervical lordosis and extensive multilevel degenerative changes. Linear fracture at the left C5 lamina extending into the base of the fused left C4-5 facets. No additional acute fractures. Osseous fusion of the right C2-3 and left C3-4 and C4-5 facets. Significant degenerative changes at the atlantoaxial articulation. Multilevel disc space height loss with bulky marginal osteophytes. Moderate to severe bony encroachment in the left C3-4 foramen. Severe bony encroachment on the left C4-5 foramen. Severe bilateral C5-6 foraminal narrowing. Severe right and moderate left foraminal narrowing at C6-7. The lung apices are clear. The small lucencies at the left anterior occipital condyle and C1 lateral mass likely represent chronic degenerative cystic changes. Infiltrating lesions are less likely. Bilateral thyroid low attenuating nodules. Significant calcified plaque and narrowing at the left carotid bifurcation. Less significant calcified plaque at the right carotid bifurcation. IMPRESSION: 1. Left C5 laminar fracture extending to the base of the fused left C4-5 facets. 2. Extensive multilevel degenerative changes and foraminal narrowing as described. 3. Bilateral thyroid nodules which can be further evaluated with ultrasound. EKG: PROCEDURES Procedures MEDICAL DECISION MAKING AND PLAN OF CARE Medical Decision Making CBC and CMP were normal. CT scan of the cervical spine reveals laminar fracture at C5 left side. Patient was given IV Toradol, Dilaudid and Zofran. This did help significantly. He was also given baclofen p.o. I discussed this case with neurosurgery [facility]. Dr. Hussein called me back regarding this patient. He did review the CT scan. He does not recommend surgery for this. Again recommends the rigid collar and setting the patient up with pain management. Patient is on MS Contin 15 mg twice per day. I did add hydrocodone to be used as needed. We contacted the clinic and we will have them arrange pain management. He was discharged with his family in stable condition. Amount and/or Complexity of Data Reviewed Radiology: ordered. Risk Prescription drug management. Clinical Scoring & Consults Medications Administered During the ED Stay from 04/13/2025 0920 to 04/13/2025 4403 Date/Time Order Dose Route Action 04/13/2025 1018 CDT HYDROmorphone (PF) (DILAUDID) injection 0.5 mg 0.5 mg IV Given 04/13/2025 1018 CDT ondansetron (ZOFRAN) 4 mg/2 mL injection 4 mg 4 mg IV Given 04/13/2025 1342 CDT ketorolac (TORADOL) injection 10 mg 10 mg IV Given 04/13/2025 1342 CDT baclofen (LIORESAL) tablet 5 mg 5 mg Oral Given Discharge Medication List as of 04/13/2025 2:08 PM START taking these medications Details HYDROcodone-acetaminophen (NORCO) 5-325 mg tablet Take 1-2 Tablets by mouth every 6 hours as neededfor Pain. Max Daily Amount: 8 Tablets, Disp-30 Tablet, R-0 baclofen (LIORESAL) 5 mg tablet Take 1 Tablet (5 mg) by mouth 3 times daily for 10 days., Disp-30 Tablet, R-0 naloxone (NARCAN) 4 mg/spray [place], Non-Aerosol EMERGENCY USE ONLY: Administer 1 spray (4 mg) in one nostril one time. May repeat in alternating nostrils every 2-3 min until responsive or EMS arrives., Disp-2 Each, R-3 CONTINUE these medications which have NOT CHANGED Details morphine (MS CONTIN) 15 mg Controlled Release tablet Take 1 Tablet (15 mg) by mouth every 12 hours.Max Daily Amount: 30 mgLOV: 04/11/25 DX: S12.491D, S12.391DDisp-14 Tablet, R-0 acetaminophen (TYLENOL) 500 mg tablet Take 500 mg by mouth every 6 hours as needed. ibuprofen (MOTRIN) 600 mg tablet Take 600 mg by mouth every 6 hours as needed for Pain, Mild. ondansetron (ZOFRAN ODT) 4 mg Tablet, Rapid Dissolve Take 1 Tablet (4 mg) by mouth every 8 hours asneeded for Nausea/Emesis. Dissolve tablet on top of tongue, then swallow with saliva., Disp-30 Tablet, R-0 blood sugar diagnostic (OneTouch Verio test strips) Strip USE 1 STRIP TO CHECK GLUCOSE ONCE DAILY DX: E11.59DX: E11.59Disp-100 Each, R-5 glipiZIDE 2.5 mg tablet Take 1 Tablet (2.5 mg) by mouth 1 time daily as needed for Other (See Comment) (Blood glucose >140 fasting). Dose reduction, Disp-100 Tablet, R-3 simvastatin (ZOCOR) 40 mg tablet Take 1 Tablet (40 mg) by mouth daily., Disp-100 Tablet, R-3 metoprolol tartrate (LOPRESSOR) 25 mg tablet Take 1 Tablet (25 mg) by mouth 2 times daily., Disp-200 Tablet, R-3 metFORMIN (GLUCOPHAGE) 1,000 mg tablet Take 1 Tablet (1,000 mg) by mouth 2 times daily with meals.,Disp-200 Tablet, R-3 lisinopriL (PRINIVIL) 5 mg tablet Take 1 Tablet (5 mg) by mouth daily., Disp-100 Tablet, R-3 fluticasone propionate (FLONASE) 50 mcg/spray [place], Suspension nasal inhaler Administer 2 Sprays in each nostril daily., Disp-16 Gram, R-0 polyethylene glycol 3350 (MIRALAX) 17 gram/dose Powder Take 1 Scoop (17 Grams) by mouth daily. Dissolve in 8 ounces of fluid and drink entire liquid, Disp-527 Gram, R-0 triamcinolone acetonide (KENALOG) 0.1 % Cream Apply to affected area 2 times daily., Disp-45 Gram, R-1 metroNIDAZOLE (METROGEL) 0.75 % Gel APPLY TO AFFECTED AREA TWICE DAILY, Disp-45 Gram, R-0 cetirizine (ZyrTEC) 10 mg tablet Take 1 Tablet (10 mg) by mouth daily at bedtime., Disp-90 Tablet, R-2 diclofenac sodium (VOLTAREN) 1 % gel Apply 2 Grams to affected area 4 times daily., Disp-100 Gram, R-3 aspirin (ECOTRIN EC) 81 mg Tablet, Delayed Release (E.C.) Take 81 mg by mouth daily. multivitamin (DAILY-LUCHO) tablet Take 1 Tablet by mouth daily. nitroglycerin (NITROSTAT) 0.[address], [address] 1 Tablet (0.4 mg) under tongue every 5 minutes as needed for Chest Pain., Disp-30 Tablet, R-0 omega-3 fatty acids-fish oil 300-1,000 mg Capsule Take by mouth daily. !! lancets 30 gauge 1 Lancet by [facility].(Non-Drug; Combo Route) route daily E11.65 Reli-On Ultra thin lancets., Disp-100 Each, R-11 !! lancets Use to check blood sugar one time daily DX: E11.65., Disp-100 Each, R-1 Blood-Glucose Meter Kit Use as directed.., Disp-1 Kit, R-1 coenzyme Q10 Capsule Take 1 Capsule (10 mg) by mouth daily. !! - Potential duplicate medications found. Please discuss with provider. STOP taking these medications Clindamycin-Benzoyl Peroxide 1.2 %(1 % base) -5 % Gel Comments: Reason for Stopping: LAST VS BP: (!) 165/73 (04/13/25 1415), Heart Rate: 77 bpm (04/13/25 0920), Resp: 20 (04/13/25 1415), Pulse: 77 (04/13/25 141), Temp: 98 ??F (36.7 ??C) (04/13/25 09), Temp src: Temporal (04/13/25919), SpO2: 97 % (04/13/251414) CLINICAL IMPRESSION Diagnosis Diagnosis Comment Added By Time Added Other closed nondisplaced fracture of fifth cervical vertebra, initial encounter ([facility]) [S12.311A] Johan Newman MD 04/13/2025 1:45 PM DISPOSITION, EDUCATION AND MEDICATION RECONCILIATION Medications reconciled. See after visit summary for patient education on discharged patients. ED Disposition ED Disposition Discharge Condition Stable User Johan Newman MD Date/Time WedApr 13, 2025 1:44 PM Comment -- ATTESTATION STATEMENTS documented in this encounter Miscellaneous Notes * Gen AI CARLEY - GENERATIVE AI HANDOFF NOTE - 04/14/2025 11:40 PM CDT ## ER_course: ## # DIAGNOSIS: Left C5 laminar fracture extending to the base of the fused left C4-5 facets with extensive multilevel degenerative changes and foraminal narrowing. # The patient, Landen Moya, an 84-year-old male, presented with severe neck pain rated at 10/10, following a fall 10 days prior. Initial evaluation at another facility revealed a C5 fracture, and surgery was not recommended. The patient was discharged with a rigid collar and Morphine for pain management. Upon arrival at the ED, the patient reported persistent severe pain and ineffective pain relief from Fentanyl administered by EMS. # During the ER visit, a CT scan confirmed the C5 laminar fracture and extensive degenerative changes. The patient was administered IV Toradol, Dilaudid, and Zofran, which significantly alleviated the pain. Baclofen was also given orally. Consultation with neurosurgery at [facility] confirmed no surgical intervention was necessary, and pain management was recommended. # Abnormal findings included a CBC with differential showing elevated neutrophils and low lymphocytes, and a comprehensive metabolic panel indicating low sodium and chloride levels, and elevated glucose. The CT scan also revealed bilateral thyroid nodules and significant calcified plaque at the carotid bifurcations. ## Follow_up_orders: ## # The patient was started on HYDROcodone-acetaminophen (NORCO) for pain management, to be taken 1-2 tablets every 6 hours as needed, and baclofen for muscle relaxation, to be taken 3 times daily for 10 days. Naloxone was provided for emergency use. # The patient is to continue taking Morphine (MS CONTIN) 15 mg every 12 hours, along with other home medications including acetaminophen, ibuprofen, and ondansetron as needed. # A referral to pain management was arranged, and the patient was advised to follow up with their primary care provider for further evaluation of the thyroid nodules with ultrasound. # The patient was discharged in stable condition with a rigid collar and instructions to continue pain management and follow up with the recommended specialists. ## Home_Situation: ## # The patient was discharged with family support present. No specific issues related to transportation, caregiver support, finances, or language barriers were noted in the ER notes. documented in this encounter Plan of Treatment Upcoming Encounters Date Type Department Care Team (Late st Contact Info) Description 05/01/2025 2:30 PM FOOD SERVICE EMPLOYEE Office Visit [facility] Neurosurgery [address] [place] [phone] Ermelinda Corona NP [address] [place] [phone] 08/01/2025 2:20 PM FOOD SERVICE EMPLOYEE Office Visit [facility] Family Medicine [address] [phone] Jose Hendricks MD [address] [phone] documented as of this encounter Procedures Procedure Name Priority Date/Time Associated Diagnosis Comments CT CERVICAL SPINE WO CONTRAST Stat 04/13/2025 11:24 AM CDT CBC WITH DIFFERENTIAL Stat 04/13/2025 10:26 AM CDT COMPREHENSIVE METABOLIC PANEL Stat 04/13/2025 10:26 AM CDT documented in this encounter Results * CT CERVICAL SPINE WO CONTRAST (04/13/2025 11:24 AM CDT) Anatomical Region Laterality Modality Spine Computed Tomogra phy 04/13/2025 11:0 6 AM CDT Impressions 04/13/2025 11:54 AM CDT IMPRESSION: Please see below. Noncontrast axial images were obtained through the cervical spine. Sagittal reformations were also performed. Reason For Exam: Neck trauma (Age >= 65y). Diagnosis: See Reason for Exam. Comparison: None Findings: Straightening of the cervical lordosis and extensive multilevel degenerative changes. Linear fracture at the left C5 lamina extending into the base of the fused left C4-5 facets. No additional acute fractures. Osseous fusion of the right C2-3 and left C3-4 and C4-5 facets. Significant degenerative changes at the atlantoaxial articulation. Multilevel disc space height loss with bulky marginal osteophytes. Moderate to severe bony encroachment in the left C3-4 foramen. Severe bony encroachment on the left C4-5 foramen. Severe bilateral C5-6 foraminal narrowing. Severe right and moderate left foraminal narrowing at C6-7. The lung apices are clear. The small lucencies at the left anterior occipital condyle and C1 lateral mass likely represent chronic degenerative cystic changes. Infiltrating lesions are less likely. Bilateral thyroid low attenuating nodules. Significant calcified plaque and narrowing at the left carotid bifurcation. Less significant calcified plaque at the right carotid bifurcation. IMPRESSION: 1. Left C5 laminar fracture extending to the base of the fused left C4-5 facets. 2. Extensive multilevel degenerative changes and foraminal narrowing as described. 3. Bilateral thyroid nodules which can be further evaluated with ultrasound. Narrative Procedure Note Caleb Sweet MD - 04/13/2025 IMPRESSION: Please see below. Noncontrast axial images were obtained through the cervical spine. Sagittal reformations were also performed. Reason For Exam: Neck trauma (Age >= 65y). Diagnosis: See Reason for Exam. Comparison: None Findings: Straightening of the cervical lordosis and extensive multilevel degenerative changes. Linear fracture at the left C5 lamina extending into the base of the fused left C4-5 facets. No additional acute fractures. Osseous fusion of the right C2-3 and left C3-4 and C4-5 facets. Significant degenerative changes at the atlantoaxial articulation. Multilevel disc space height loss with bulky marginal osteophytes. Moderate to severe bony encroachment in the left C3-4 foramen. Severe bony encroachment on the left C4-5 foramen. Severe bilateral C5-6 foraminal narrowing. Severe right and moderate left foraminal narrowing at C6-7. The lung apices are clear. The small lucencies at the left anterior occipital condyle and C1 lateral mass likely represent chronic degenerative cystic changes. Infiltrating lesions are less likely. Bilateral thyroid low attenuating nodules. Significant calcified plaque and narrowing at the left carotid bifurcation. Less significant calcified plaque at the right carotid bifurcation. IMPRESSION: 1. Left C5 laminar fracture extending to the base of the fused left C4-5 facets. 2. Extensive multilevel degenerative changes and foraminal narrowing as described. 3. Bilateral thyroid nodules which can be further evaluated with ultrasound. us Johan Newman MD CT ORDERABLES Final Re sult * (ABNORMAL) COMPREHENSIVE METABOLIC PANEL (04/13/2025 10:26 AM CDT) SODIUM 131(L) 136 - 145 mmol/L 04/13/2025 10:53 AM [facility] POTASSIUM 4.9 3.5 - 5.1 mmol/L 04/13/2025 10:53 AM [facility] CHLORIDE 92(L) 98 - 107 mmol/L 04/13/2025 10:53 AM [facility] CO2 28 22 - 29 mmol/L 04/13/2025 10:53 AM [facility] CALCIUM 9.7 8.8 - 10.2 mg/dL 04/13/2025 10:53 AM [facility] BUN 16 8 - 23 mg/dL 04/13/2025 10:53 AM [facility] CREATININE 0.80 0.67 - 1.17 mg/dL 04/13/2025 10:53 AM [facility] Comment:The GFR result is no t clinically significant on patients <18 or >70 years of age. GLUCOSE 145(H) 74 - 99 mg/dL 04/13/2025 10:53 AM [facility] TOTAL PROTEIN 7.2 6.6 - 8.7 g/dL 04/13/2025 10:53 AM [facility] ALBUMIN 4.3 3.5 - 5.2 g/dL 04/13/2025 10:53 AM [facility] BILIRUBIN TOTAL 0.3 0.0 - 1.2 mg/dL 04/13/2025 10:53 AM [facility] ALKALINE PHOSPHATASE 49 40 - 129 U/L 04/13/2025 10:53 AM [facility] AST 20 0 - 50 U/L 04/13/2025 10:53 AM [facility] ALT 14 0 - 50 U/L 04/13/2025 10:53 AM [facility] GFR >60 mL/min/1.7 3 sq meter 04/13/2025 10:53 AM [facility] Comment:eGFR calculated with 2020 CKD-EPI equation. Vegetarian diet, extremely high or low muscle mass, and may affect results. Cystatin C with Glomerular Filtration Rate is a suitable alternative for these patients. ANION GAP 11 5 - 20 mmol/L 04/13/2025 10:53 AM [facility] Blood BLOOD SPECIMEN / Unknown Collection / Unknown 04/13/2025 10:26 AM CDT 04/13/2025 10:33 AM CDT us Johan Newman MD CHEMISTRY ORDERABLES Fin al Result [facility] CLIA # [id number] [address] [place] [address] * (ABNORMAL) CBC WITH DIFFERENTIAL (04/13/2025 10:26 AM CDT) WBC 8.3 4.2 - 9.1 K/uL 04/13/2025 10:36 AM [facility] RBC 4.14(L) 4.63 - 6.08 M/uL 04/13/2025 10:36 AM [facility] HEMOGLOBIN 13.1(L) 13.7 - 17.5 g/dL 04/13/2025 10:36 AM [facility] HEMATOCRIT 37.0(L) 40.1 - 51.0 % 04/13/2025 10:36 AM [facility] MCV 89.4 79.0 - 92.2 fL 04/13/2025 10:36 AM [facility] MCH 31.6 25.7 - 32.2 pg 04/13/2025 10:36 AM [facility] MCHC 35.4 32.3 - 36.5 g/dL 04/13/2025 10:36 AM [facility] RDW 12.2 11.0 - 14.5 % 04/13/2025 10:36 AM [facility] RDW-STDEV 39.8 36.9 - 56.9 fL 04/13/2025 10:36 AM [facility] PLATELETS 203 130 - 400 K/uL 04/13/2025 10:36 AM [facility] MPV 9.5(L) 10.0 - 14.8 fL 04/13/2025 10:36 AM [facility] NEUTROPHILS 77(H) 34 - 68 % 04/13/2025 10:36 AM [facility] LYMPHOCYTES 13(L) 22 - 53 % 04/13/2025 10:36 AM [facility] MONOCYTES 8 5 - 12 % 04/13/2025 10:36 AM [facility] EOSINOPHILS 2 1 - 7 % 04/13/2025 10:36 AM [facility] BASOPHILS 1 0 - 1 % 04/13/2025 10:36 AM [facility] IMMATURE GRANULOCYTES 1 % 04/13/2025 10:36 AM [facility] NEUTROPHIL ABSOLUTE 6.35(H) 1.78 - 5.38 K/uL 04/13/2025 10:36 AM [facility] LYMPHOCYTE ABSOLUTE 1.04(L) 1.20 - 3.40 K/uL 04/13/2025 10:36 AM CDT [facility] MONOCYTE ABSOLUTE 0.64 0.30 - 0.82 K/uL 04/13/2025 10:36 AM CDT [facility] EOSINOPHIL ABSOLUTE 0.18 0.04 - 0.54 K/uL 04/13/2025 10:36 AM CDT [facility] BASOPHILS ABSOLUTE 0.05 0.01 - 0.08 K/uL 04/13/2025 10:36 AM CDT [facility] IMMATURE GRANULOCYTES ABSOLUTE 0.04 K/uL 04/13/2025 10:36 AM CDT [facility] Blood BLOOD SPECIMEN / Unknown Collection / Unknown 04/13/2025 10:26 AM CDT 04/13/2025 10:33 AM CDT us Johan Newman MD HEMATOLOGY ORDERABLES Fi nal Result [facility] CLIA # [id number] [address] [place] [address] documented in this encounter Visit Diagnoses Diagnosis Other closed nondisplaced fracture of fifth cervical vertebra, initial encounter ([facility])- Primary documented in this encounter Administered Medications Inactive Administered Medications - up to 3 most recent administrations Medication Order MAR Action Action Date Dose Rate Site baclofen (LIORESAL) tablet 5 mg 5 mg, Oral, ONE TIME ONLY, 1 dose, On Wed04/13/25 at 1345, Routine Given 04/13/2025 1:42 PM CDT 5 mg HYDROmorphone (PF) (DILAUDID) injection 0.5 mg 0.5 mg, IV, ONE TIME ONLY, 1 dose, On Wed04/13/25 at 1015, Routine Given 04/13/2025 10:18 AM CDT 0.5 mg ketorolac (TORADOL) injection 10 mg 10 mg, IV, ONE TIME ONLY, 1 dose, On Wed04/13/25 at 1345, Routine Given 04/13/2025 1:42 PM CDT 10 mg ondansetron (ZOFRAN) 4 mg/2 mL injection 4 mg 4 mg, IV, ONE TIME ONLY, 1 dose, On Wed04/13/25 at 1015, Stat Given 04/13/2025 10:18 AM CDT 4 mg documented in this encounter Active and Recently Administered Medications Times are shown in CDT. Scheduled Medication Order 04/11/2025 04/12/2025 04/13/2025 baclofen (LIORESAL) tablet 5 mg (COMPLETED) 5 mg, Oral, ONE TIME ONLY, 1 dose, On Wed04/13/25 at 1345, Routine 1342 (Given - Provid er: Irene Garcia RN) HYDROmorphone (PF) (DILAUDID) injection 0.5 mg (COMPLETED) 0.5 mg, IV, ONE TIME ONLY, 1 dose, On Wed04/13/25 at 1015, Routine 1018 (Given - Provid er: Irene Garcia RN) ketorolac (TORADOL) injection 10 mg (COMPLETED) 10 mg, IV, ONE TIME ONLY, 1 dose, On Wed04/13/25 at 1345, Routine 1342 (Given - Provid er: Irene Garcia RN) ondansetron (ZOFRAN) 4 mg/2 mL injection 4 mg (COMPLETED) 4 mg, IV, ONE TIME ONLY, 1 dose, On Wed04/13/25 at 1015, Stat 1018 (Given - Provid er: Irene Garcia RN) documented in this encounter Additional Health Concerns Assessment Noted Time PHQ-9 Depression Total Score: 2 07/19/19 25 2:11 PM FOOD SERVICE EMPLOYEE documented as of this encounter Care Teams Research Anthropologist Relationship Specialty Start Date End Date Jose Hendricks MD [address] [phone] PCP - General Family Practice 07/16/21 documented as of this encounter
[2025-04-15 10:07] VITALS: BP 169/70; PULSE 85; RESP 15; TEMP 36.8; O2SAT 92; BMI 26.7
--- OUTSIDE RECORDS SUMMARY | 2025-04-15 10:14 | XMS_ITS ---
Author Organization [facility] Address [address] [place] [address] Care Team Providers Care Manager Presentation Name Role Phone Destiny Peck MD Primary Care Provider Active Problems Problem Noted Date Diagnosed Date Personal history of prostate cancer 05/19/2016 Urinary extravasation 05/01/2015 Clostridium difficile diarrhea 04/16/2015 Clostridium difficile infection 04/16/2015 Dementia without behavioral disturbance 04/13/20 Acute encephalopathy 04/13/2015 Hypoxia 04/13/2015 Renal insufficiency [...] GLEZ/Diagnonal Assessment & Plan (08/19/2016 1:28 PM ADVICE CLERK): Stable. Hyperlipidemia 04/05/2008 Overview (08/19/2016): Lab Results [...] AM Assessment & Plan (08/19/2016 1:26 PM ADVICE CLERK): Stable. GERD (gastroesophageal reflux disease) Current Treatment [...]
--- OUTSIDE RECORDS SUMMARY | 2025-04-15 10:15 | XMS_ITS | Encounter Summary ---
Author Organization 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
--- OUTSIDE RECORDS SUMMARY | 2025-04-15 10:15 | XMS_ITS | Encounter Summary ---
Author Organization [facility] Address [address] [place] [address] Care Team Providers Care Researcher Name Role Phone Destiny Peck MD Primary Care Provider [phone] Encounter Details Date Type Department Care Team (Latest Contact Info) Description 10/04/2001 Outpatient Historical [facility] Medicine- [address] [phone] Gulshan Mir MD [address] [phone] JOINT PAIN-SHLDER (Primary Dx); SKIN HYPERTRO/ATROPH NOS Social History Tobacco Use Types Packs/Day Years Used Date Smoking Tobacco: Never Assessed Sex and Gender Information Value Date Recorded Sex Assigned at Not on file Legal Sex Male 3:17 AM CALL PERSON Gender Identity Not on file Sexual Orientation [...] documented as of this encounter Care Teams Researcher Relationship Specialty Start Date End Date Destiny Peck MD [address] [facility] [address] [place] [phone] PCP - General Family Practice 07/10/13 documented as of this encounter
--- OUTSIDE RECORDS SUMMARY | 2025-04-15 10:15 | XMS_ITS | Encounter Summary ---
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
--- OUTSIDE RECORDS SUMMARY | 2025-04-15 10:15 | XMS_ITS | Encounter Summary ---
Author Organization [facility] Address [address] [place] [address] Care Team Providers Care Plastic Sheeting Cutter Name Role Phone Destiny Peck MD Primary Care Provider Encounter Details Date Type Department Care Team (Latest Contact Info) Description 06/03/2001 Outpatient Historical [facility] Medicine [address] [phone] Gulshan Mir MD [address] [phone] SHOULDER REGION DIS NEC (Primary Dx); SCREENING MAL NEOP-PROSTATE; SCREENING-LIPOID DISORDERS Social History Tobacco Use Types Packs/Day Years Used Date Smoking Tobacco: Never Assessed Sex and Gender Information Value Date Recorded Sex Assigned at Not on file Legal Sex Male 3:17 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
--- OUTSIDE RECORDS SUMMARY | 2025-04-15 10:15 | XMS_ITS | Encounter Summary ---
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
--- OUTSIDE RECORDS SUMMARY | 2025-04-15 10:15 | XMS_ITS | Encounter Summary ---
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
--- OUTSIDE RECORDS SUMMARY | 2025-04-15 10:15 | XMS_ITS | Encounter Summary ---
Author Organization [facility] Address [address] [place] [address] Care Team Providers Care Promos Executive Producer Name Role Phone Destiny Peck MD Primary Care Provider [phone] Encounter Details Date Type Department Care Team (Latest Contact Info) Description 10/13/2000 Outpatient Historical [facility] Medicine- [address] [phone] Gulshan Mir MD [address] [phone] Esophageal reflux (Primary Dx); Chest pain, unspecified Social History Tobacco Use Types Packs/Day Years Used Date Smoking Tobacco: Never Assessed Sex and Gender Information Value Date Recorded Sex Assigned at Not on file Legal Sex Male 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 Gender Identity Not on file Sexual Orientation Not on file documented as of this encounter Plan of Treatment Not on file documented as of this encounter Visit Diagnoses Diagnosis Esophageal reflux- Primary Chest pain, unspecified documented in this encounter Additional Health Concerns Infection Onset Date Last Indicated Resolved Time C Diff Comment:04/16/15 04/17/2015 04/17/2015 documented as of this encounter Care Teams Promos Executive Producer Relationship Specialty Start Date End Date Destiny Peck MD [address] [phone] PCP - General Family Practice 07/10/13 documented as of this encounter
--- OUTSIDE RECORDS SUMMARY | 2025-04-15 10:15 | XMS_ITS | Encounter Summary ---
Author Organization [facility] Address [address] [place] [address] Care Team Providers Care Marine Operations Coordinator Name Role Phone Destiny Peck MD Primary Care Provider Encounter Details Date Type Department Care Team (Latest Contact Info) Description 05/22/2002 Outpatient Historical [facility] [address] [place] [address] Gulshan Mir MD [address] [facility] [address] [place] [phone] ACUTE BRONCHITIS (Primary Dx) Social History Tobacco Use Types Packs/Day Years Used Date Smoking Tobacco: Never Assessed Sex and Gender Information Value Date Recorded Sex Assigned at Not on file Legal Sex Male 3:17 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 GRINDER Gender Identity Not on file Sexual Orientation Not on file documented as of this encounter Plan of Treatment Not on file documented as of this encounter Visit Diagnoses Diagnosis Acute bronchitis- Primary documented in this encounter Additional Health Concerns Infection Onset Date Last Indicated Resolved Time C Diff Comment:04/16/15 04/17/2015 04/17/2015 documented as of this encounter Care Teams Marine Operations Coordinator Relationship Specialty Start Date End Date Destiny Peck MD [address] [facility] [address] [place] [phone] PCP - General Family Practice 07/10/13 documented as of this encounter
--- OUTSIDE RECORDS SUMMARY | 2025-04-15 10:15 | XMS_ITS | Encounter Summary ---
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
--- OUTSIDE RECORDS SUMMARY | 2025-04-15 10:15 | XMS_ITS | Encounter Summary ---
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
--- OUTSIDE RECORDS SUMMARY | 2025-04-15 10:15 | XMS_ITS | Encounter Summary ---
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
--- OUTSIDE RECORDS SUMMARY | 2025-04-15 10:15 | XMS_ITS | Encounter Summary ---
Author Organization [facility] Address [address] [place] [address] Care Team Providers Care Pinmaker Name Role Phone Destiny Peck MD Primary Care Provider Encounter Details Date Type Department Care Team (Latest Contact Info) Description 01/24/2003 Outpatient Historical [facility] Medicine[address] [phone] Gulshan Mir MD [address] [address] SHOULDER REGION DIS NEC (Primary Dx) Social History Tobacco Use Types Packs/Day Years Used Date Smoking Tobacco: Never Assessed Sex and Gender Information Value Date Recorded Sex Assigned at Not on file 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
--- OUTSIDE RECORDS SUMMARY | 2025-04-15 10:15 | XMS_ITS | Clinical Summary ---
Author Organization [facility] Address [address] [facility] Attn: [place] [address] Care Team Providers Care Weed Control Inspector Name Role Phone Jose Hendricks MD Primary Care Provider [phone] [phone] Allergies No known active allergies Medications lancets 30 gauge 1 Lancet by [facility].(Non-Drug; Combo Route) route daily E11.65 Reli-On Ultra [...] 2 diabetes mellitus with complication, unspecified whether nursing home insulin use ([facility]) Use as directed.. 1 Kit 1 10/27/19 18 Active diclofenac sodium (VOLTAREN) 1 % gelIndications:Bur sitis of left shoulder,Chronic left shoulder pain Apply 2 Grams to affected area 4 times daily. 100 Gram 3 07/14/19 Active cetirizine (ZyrTEC) 10 mg tabletIndications: Allergic rhinitis, unspecified seasonality, unspecified trigger Take 1 Tablet (10 mg) by mouth daily at bedtime. 90 Tablet 2 03/08/20 23 Active Additional Information Patient not taking.Reported on 04/11/2025 triamcinolone acetonide (KENALOG) 0.1 % CreamIndications:A llergic contact dermatitis due to cosmetics Apply to affected area 2 times daily. 45 Gram 1 09/07/19 Active Additional Information Patient not taking.Reported on 04/11/2025 metroNIDAZOLE (METROGEL) 0.75 % GelIndications:Ros acea, unspecified APPLY TO AFFECTED AREA TWICE DAILY 45 Gram 09/07/19 24 Active Additional Information Patient not taking.Reported on 04/11/2025 polyethylene glycol 3350 (MIRALAX) 17 gram/dose PowderIndications: Slow transit constipation Take 1 Scoop (17 Grams) by mouth daily. Dissolve in 8 ounces of fluid and drink entire liquid 527 Gram 10/08/19 Active fluticasone propionate (FLONASE) 50 mcg/spray [place], Suspension nasal inhalerIndications :Vertigo Administer 2 Sprays in each nostril daily. 16 Gram 04/14/20 Active Additional Information Patient not taking.Reported on 04/11/2025 simvastatin (ZOCOR) 40 mg tabletIndications: Type 2 diabetes mellitus with other circulatory complication, without long-term current use of insulin,Coronary artery disease of [place] artery of [place] heart with stable angina pectoris,Mixed hyperlipidemia Take 1 Tablet (40 mg) by mouth daily. 100 Tablet 3 07/19/19 25 Active metoprolol tartrate (LOPRESSOR) 25 mg tabletIndications: Coronary artery disease of [place] artery of [place] heart with stable angina pectoris,Benign hypertension Take 1 Tablet (25 mg) by mouth 2 times daily. 200 Tablet 3 07/19/19 25 Active metFORMIN (GLUCOPHAGE) 1,000 mg tabletIndications: Type 2 diabetes mellitus with other circulatory complication, without long-term current use of insulin Take 1 Tablet (1,000 mg) by mouth 2 times daily with meals. 200 Tablet 07/19/19 Active lisinopriL (PRINIVIL) 5 mg tabletIndications: Type 2 diabetes mellitus with other circulatory complication, without long-term current use of insulin,Coronary artery disease of [place] artery of [place] heart with stable angina pectoris,Benign hypertension Take 1 Tablet (5 mg) by mouth daily. 100 Tablet 07/19/19 Active glipiZIDE 2.5 mg tabletIndications: Type 2 diabetes mellitus with other circulatory complication, without long-term current use of insulin Take 1 Tablet (2.5 mg) by mouth 1 time daily as needed for Other (See Comment) (Blood glucose >140 fasting). Dose reduction 100 Tablet 01/04/20 Active Additional Information Patient not taking.Reported on 04/11/2025 blood sugar diagnostic (Cardax PharmaTouch Verio test strips) StripIndications:T ype 2 diabetes mellitus with other circulatory complication, without long-term current use of insulin USE 1 STRIP TO CHECK GLUCOSE ONCE DAILY DX: E11.59 100 Each 5 03/02/20 Active ibuprofen (MOTRIN) 600 mg tablet Take 600 mg by mouth every 6 hours as needed for Pain, Mild. Active ondansetron (ZOFRAN ODT) 4 mg Tablet, Rapid DissolveIndication s:Acute nausea with nonbilious vomiting Take 1 Tablet (4 mg) by mouth every 8 hours as needed for Nausea/Emesis. Dissolve tablet on top of tongue, then swallow with saliva. 30 Tablet 04/11/20 Active morphine (MS CONTIN) 15 mg Controlled Release tabletIndications: Other closed nondisplaced fracture of fourth cervical vertebra with routine healing, subsequent encounter,Other closed nondisplaced fracture of fifth cervical vertebra with routine healing, subsequent encounter Take 1 Tablet (15 mg) by mouth every 12 hours. Max Daily Amount: 30 mg 14 Tablet 04/11/20 25 Active HYDROcodone-acetam inophen (NORCO) 5-325 mg tabletIndications: Other closed nondisplaced fracture of fifth cervical vertebra, initial encounter ([facility]) Take 1-2 Tablets by mouth every 6 hours as needed for Pain. Max Daily Amount: 8 Tablets 30 Tablet 04/13/20 Active baclofen (LIORESAL) 5 mg tablet Take 1 Tablet (5 mg) by mouth 3 times daily for 10 days. 30 Tablet 04/13/20 25 025 Active naloxone (NARCAN) 4 mg/spray [place], Non-Aerosol EMERGENCY USE ONLY: Administer 1 spray (4 mg) in one nostril one time. May repeat in alternating nostrils every 2-3 min until responsive or EMS arrives. 2 Each 3 04/13/20 25 Active morphine (MS CONTIN) 15 mg Controlled Release tablet Take 15 mg by mouth every 12 hours. 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 07/16/2021 [...] Encounters Date Type Department Care Team Description 04/14/2025 [facility] [address] [facility] [place] [address] Aleyda Oliveira MD 04/13/2025 9:20 AM CDT - 04/13/2025 2:30 PM CDT Emergency [facility] Emergency Medicine [address] [phone] Johan Newman MD Other closed nondisplaced fracture of fifth cervical vertebra, initial encounter ([facility]) (Primary Dx) Discharge Disposition: Home or Self Care 04/13/2025 Orders Only [facility] [address] [phone] Arpita He FNP Other closed nondisplaced fracture of fourth cervical vertebra with routine healing, subsequent encounter (Primary Dx); Other closed nondisplaced fracture of fifth cervical vertebra with routine healing, subsequent encounter 04/13/2025 Travel 04/11/2025 3:40 PM CDT Video Visit [facility] [address] [phone] Arpita He FNP Other closed nondisplaced fracture of fourth cervical vertebra with routine healing, subsequent encounter (Primary Dx); Other closed nondisplaced fracture of fifth cervical vertebra with routine healing, subsequent encounter; Acute nausea with nonbilious vomiting 04/11/2025 [facility] [address] [place] [phone] Arpita He, ANETA Other closed nondisplaced fracture of fifth cervical vertebra with routine healing, subsequent encounter (Primary Dx); Other closed nondisplaced fracture of fourth cervical vertebra with routine healing, subsequent encounter 04/11/2025 External Device Data ST[facility] ABSTRACTION Provider, Abstract 03/02/2025 [facility] [address] [phone] Jose Hendricks MD Type 2 diabetes mellitus with other circulatory complication, without long-term current use of insulin ([facility]) 02/20/2025 External Device Data [facility] ABSTRACTION Provider, [...] worry about transportation for future doctor visits, belt picker medication, etc.? 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 Gender Identity Not on file Sexual Orientation [...] Mass Index 26.23 04/13/2025 9:20 AM CDT Plan of Treatment Upcoming Encounters Date Type Department Care Team (Late st Contact Info) Description 05/01/2025 2:30 PM HARVESTING CONTRACTOR Office Visit [facility] Neurosurgery [address] [place] [address] Ermelinda Corona NP [address] [place] [address] 08/01/2025 2:20 PM HARVESTING CONTRACTOR Office Visit [facility] Family Medicine [address] [phone] Jose Hendricks MD [address] [phone] Health Maintenance Due Date Last Done Comments DTAP/TDAP/TD VACCINES (1 - Tdap) 1959 PNEUMOCOCCAL VACCINE 50+ YEA RS (1 of 2 - PCV) 1959 07/09/2008, 07/09/2008 ZOSTER VACCINE (1 of 2) 1990 RSV VACCINE (60+ or ) (1 - 1-dose 75+ series) 2015 COLORECTAL SCREENING 05/20/2020 05/20/2017 INFLUENZA VACCINE (#1) 2025 4, 04/01/2023, 04/02/2022, Additional history exists DIABETES HBA1C [...] Order) 11/29/202511/29, 11/29/2024, 07/19/2024, Additional history exists DIABETES ANNUAL FOOT EXAM 04/11/20262024, 10/02/2022, 02/25/2021, Additional history exists Medical Devices Implanted Type Area Training Mgr Device Identifier Shelf Expiration Date Model / Serial / Lot 8fr Flexima Nephrostomy Catheter-2014 Implanted:Qty: 1 on 04/15/2015 by Harshad Monroe MD Catheter Left: Abdomen [employer] 12/30/2017 [id number] / / [id number] 8fr Flexima Nephrostomy Catheter-2014 Implanted:Qty: 1 on 04/15/2015 by Harshad Monroe MD Catheter Right: Abdomen [employer] 12/10/2017 [id number] / / [id number] Sealant Floseal W/ Adptr 10ml [id number] - [id number] Implanted:Qty: 1 on 04/08/2015 by Jefe Hearn MD Sealant N/A: Abdomen BlazeMeter- [employer] 05/20/2016 [id number] / / [id number] Procedures Procedure Name Priority Date/Time Associated Diagnosis Comments CT CERVICAL SPINE WO CONTRAST Stat 04/13/2025 11:24 AM CDT COMPREHENSIVE METABOLIC PANEL Stat 04/13/2025 10:26 AM CDT CBC WITH DIFFERENTIAL Stat 04/13/2025 10:26 AM CDT HEMOGLOBIN A1C Routine 11/29/2024 9:08 AM CDT Type 2 diabetes mellitus without complication, without long-term current use of insulin (CMS/HCC) HM DIABETES EYE EXAM Routine 11/10/2024 12:44 PM CDT MICROALBUMIN/CREATININ E RATIO, RANDOM UR Routine 07/19/2024 4:08 PM HARVESTING CONTRACTOR Type 2 diabetes mellitus with other circulatory complication, without long-term current use of insulin (CMS/HCC) LIPID PANEL Routine 07/19/2024 3:11 PM HARVESTING CONTRACTOR Type 2 diabetes mellitus with other circulatory complication, without long-term current use of insulin (CMS/HCC) from Last 3 Months or Most Recently Relevant to Health Maintenance Results * CT CERVICAL SPINE WO CONTRAST [...] CT ORDERABLES Final Re sult * (ABNORMAL) CBC WITH DIFFERENTIAL (04/13/2025 10:26 AM CDT) WBC 8.3 4.2 - 9.1 K/uL 04/13/2025 10:36 AM [facility] RBC 4.14(L) 4.63 - 6.08 M/uL 04/13/2025 10:36 AM [facility] HEMOGLOBIN 13.1(L) 13.7 - 17.5 g/dL 04/13/2025 10:36 AM [facility] HEMATOCRIT 37.0(L) 40.1 - 51.0 % 04/13/2025 10:36 AM [facility] MCV 89.4 79.0 - 92.2 fL 04/13/2025 10:36 AM [facility] MCH 31.6 25.7 - 32.2 pg 04/13/2025 10:36 AM [facility] MCHC 35.4 32.3 - 36.5 g/dL 04/13/2025 10:36 AM [facility] RDW 12.2 11.0 - 14.5 % 04/13/2025 10:36 AM [facility] RDW-STDEV 39.8 36.9 - 56.9 fL 04/13/2025 10:36 AM [facility] PLATELETS 203 130 - 400 K/uL 04/13/2025 10:36 AM [facility] MPV 9.5(L) 10.0 - 14.8 fL 04/13/2025 10:36 AM [facility] NEUTROPHILS 77(H) 34 - 68 % 04/13/2025 10:36 AM [facility] LYMPHOCYTES 13(L) 22 - 53 % 04/13/2025 10:36 AM [facility] MONOCYTES 8 5 - 12 % 04/13/2025 10:36 AM [facility] EOSINOPHILS 2 1 - 7 % 04/13/2025 10:36 AM [facility] BASOPHILS 1 0 - 1 % 04/13/2025 10:36 AM [facility] IMMATURE GRANULOCYTES 1 % 04/13/2025 10:36 AM [facility] NEUTROPHIL ABSOLUTE 6.35(H) 1.78 - 5.38 K/uL 04/13/2025 10:36 AM CDT [facility] LYMPHOCYTE ABSOLUTE 1.04(L) 1.20 - 3.40 K/uL 04/13/2025 10:36 AM [facility] MONOCYTE ABSOLUTE 0.64 0.30 - 0.82 K/uL 04/13/2025 10:36 AM [facility] EOSINOPHIL ABSOLUTE 0.18 0.04 - 0.54 K/uL 04/13/2025 10:36 AM [facility] BASOPHILS ABSOLUTE 0.05 0.01 - 0.08 K/uL 04/13/2025 10:36 AM [facility] IMMATURE GRANULOCYTES ABSOLUTE 0.04 K/uL 04/13/2025 10:36 AM [facility] Blood BLOOD SPECIMEN / Unknown Collection / Unknown 04/13/2025 10:26 AM CDT 04/13/2025 10:33 AM CDT Johan Newman MD HEMATOLOGY ORDERABLES Fi nal Result [facility] CLIA # [id number] [address] [place] [address] * (ABNORMAL) COMPREHENSIVE METABOLIC PANEL (04/13/2025 10:26 AM CDT) SODIUM 131(L) 136 - 145 mmol/L 04/13/2025 10:53 AM [facility] POTASSIUM 4.9 3.5 - 5.1 mmol/L 04/13/2025 10:53 AM [facility] CHLORIDE 92(L) 98 - 107 mmol/L 04/13/2025 10:53 AM [facility] CO2 28 22 - 29 mmol/L 04/13/2025 10:53 AM [facility] CALCIUM 9.7 8.8 - 10.2 mg/dL 04/13/2025 10:53 AM [facility] BUN 16 8 - 23 mg/dL 04/13/2025 10:53 AM [facility] CREATININE 0.80 0.67 - 1.17 mg/dL 04/13/2025 10:53 AM [facility] Comment:The GFR result is no t clinically significant on patients <18 or >70 years of age. GLUCOSE 145(H) 74 - 99 mg/dL 04/13/2025 10:53 AM [facility] TOTAL PROTEIN 7.2 6.6 - 8.7 g/dL 04/13/2025 10:53 AM [facility] ALBUMIN 4.3 3.5 - 5.2 g/dL 04/13/2025 10:53 AM [facility] BILIRUBIN TOTAL 0.3 0.0 - 1.2 mg/dL 04/13/2025 10:53 AM [facility] ALKALINE PHOSPHATASE 49 40 - 129 U/L 04/13/2025 10:53 AM [facility] AST 20 0 - 50 U/L 04/13/2025 10:53 AM [facility] ALT 14 0 - 50 U/L 04/13/2025 10:53 AM [facility] GFR >60 mL/min/1.7 3 sq meter 04/13/2025 10:53 AM [facility] Comment:eGFR calculated with 2020 CKD-EPI equation. Vegetarian diet, extremely high or low muscle mass, and may affect results. Cystatin C with Glomerular Filtration Rate is a suitable alternative for these patients. ANION GAP 11 5 - 20 mmol/L 04/13/2025 10:53 AM [facility] Blood BLOOD SPECIMEN / Unknown Collection / Unknown 04/13/2025 10:26 AM CDT 04/13/2025 10:33 AM CDT us Johan Newman MD CHEMISTRY ORDERABLES Fin al Result [facility] CLIA # [id number] [address] [place] [address] * (ABNORMAL) HEMOGLOBIN A1C (11/29/2024 9:08 AM CDT) HEMOGLOBIN A1C 6.3(H) <5.7 % [facility] Comment: For someone without known diabetes, [...] children. ESTIMATED AVERAGE GLUCOSE (MG/DL) 134 mg/dL [facility] ESTIMATED AVERAGE GLUCOSE (MMOL/L) 7.4 mmol/L [facility] Comment: Test Performed at: [facility] [address] [place] [address] Jesse Reynoso MD Blood 11/29/2024 9:08 AM CDT 11/30/2024 4:25 AM CDT Jose Hendricks MD CHEMISTRY ORDERABLES Moni l Result [facility] [phone] [facility] [address] [place] [address] * (ABNORMAL) DIABETES EYE EXAM (11/10/2024 12:44 PM CDT) us Abstract Provider HEALTH MAINTENANCE Edited Resu lt - Final * MICROALBUMIN/CREATININE RATIO, RANDOM UR (07/19/2024 4:08 PM HARVESTING CONTRACTOR) Creatinine, Urine 157 20 - 320 mg/dL [facility] MICROALBUMIN, URINE 0.5 See Note: mg/dL [...] within a diagnostic category. Test Performed at: [facility] [id number] [place] [address] Jesse Reynoso MD Urine URINE SPECIMEN OBTAINED BY CLEAN CATCH PROCEDURE / Unknown 07/19/2024 4:08 PM HARVESTING CONTRACTOR 07/21/2024 6:52 AM HARVESTING CONTRACTOR us Jose Hendricks MD URINE ORDERABLES Final Re sult [facility] [phone] [facility] [address] [address] [place] [address] * (ABNORMAL) LIPID PANEL (07/19/2024 3:11 PM HARVESTING CONTRACTOR) CHOLESTEROL 152 <200 mg/dL [facility] HDL 42 > OR = 40 mg/dL [facility] TRIGLYCERIDE 350(H) <150 mg/dL [facility] Comment: If a non-fasting specimen was collected, consider repeat triglyceride testing on a fasting specimen if clinically indicated. Leno et al. J. of Clin. Lipidol. 2015;9:129-169. LDL CALCULATED 68 mg/dL (calc) [facility] Comment: Reference range: <100 Desirable range <100 mg/dL for primary prevention; <70 mg/dL for patients with CHD or diabetic patients with > or = 2 CHD risk factors. LDL-C is now calculated using the Roger-Contreras calculation, which is a validated novel method providing better accuracy than the Friedewald equation in the estimation of LDL-C. Roger SS et al. IZZY. 2013;310(19): 1119-2621 (http://education.Shicon/faq/DYP736) CHOL/HDL RATIO 3.6 <5.0 (calc) [facility] NON-HDL CHOLESTEROL 110 <130 mg/dL (calc) [facility] Comment: For patients with diabetes plus 1 major ASCVD risk factor, treating to a non-HDL-C goal of <100 mg/dL (LDL-C of <70 mg/dL) is considered a therapeutic option. Test Performed at: [facility] [id number] [place] [address] [address] Jesse Reynoso MD Blood 07/19/2024 3:11 PM HARVESTING CONTRACTOR 07/21/2024 7:36 AM HARVESTING CONTRACTOR Jose Hendricks MD CHEMISTRY ORDERABLES Moni l Result [facility] [phone] [facility] [address] [address] [address] from Last 3 Months or Most Recently Relevant to Health Maintenance Insurance MEDICAID [place] MEDICARE PART A AND B Care Teams Weed Control Inspector Relationship Specialty Start Date End Date Jose Hendricks MD [address] [phone] PCP - General Family Practice 07/16/21
--- OUTSIDE RECORDS SUMMARY | 2025-04-15 10:15 | XMS_ITS ---
Author Organization [facility] Address [address] [facility] Attn: [place] [address] Care Team Providers Care Parachute Folder Name Role Phone Jose Hendricks MD Primary Care Provider [phone] Active Problems Problem Noted Date Diagnosed Date [...] artery disease of n ative artery of [place] heart with stable angina pectoris 07/04/2008 Overview [...] Automatic Entry Manual Entr y Effective Dose 31.4 mSv 2.3 mSv 29.1 mSv Total DLP 3,134.4 DLP 384.4 DLP 2,750 DLP CTDIvol Max 152.7 mGy 31.5 mGy 121.2 mGy CTDIvol Min 89.7 mGy 31.5 mGy 58.2 mGy Resolved Problems Problem Noted [...]
--- OUTSIDE RECORDS SUMMARY | 2025-04-15 10:15 | XMS_ITS | Encounter Summary ---
Author Organization [facility] Address [address] [place] [address] Care Team Providers Care Tennis Court Attendant Name Role Phone Destiny Peck MD Primary Care Provider Encounter Details Date Type Department Care Team (Late st Contact Info) Description 04/10/2014 Ancillary Orders [facility] Laboratory Services [place] [address] [phone] Destiny Peck MD [address] [facility] [address] [place] [address] Social History Tobacco Use Types Packs/Day Years Used Date Smoking Tobacco: Former Pipe Q uit: 06/21/1999 Cigars Quit: 06/21/19 Smokeless Tobacco: Former Chew Quit: 06/21/1999 Alcohol Use Standard Drinks/Week Comments No 0 (1 standard drink = 0.6 oz pur e alcohol) Sex and Gender Information Value Date Recorded Sex Assigned at Not on file 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
--- OUTSIDE RECORDS SUMMARY | 2025-04-15 10:15 | XMS_ITS | Encounter Summary ---
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
--- OUTSIDE RECORDS SUMMARY | 2025-04-15 10:15 | XMS_ITS | Encounter Summary ---
Author Organization [facility] Address [address] [place] [address] Care Team Providers Care Concrete Bucket Hooker Name Role Phone Destiny Peck MD Primary Care Provider Encounter Details Date Type Department Care Team (Latest Contact Info) Description 10/19/2000 Outpatient Historical [facility] Medicine [address] [phone] Ronna Sidhu MD Esophageal reflux (Primary Dx); Screening for malignant neoplasm of the rectum Social History Tobacco Use Types Packs/Day Years Used Date Smoking Tobacco: Never Assessed Sex and Gender Information Value Date Recorded Sex Assigned at Not on file 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
--- OUTSIDE RECORDS SUMMARY | 2025-04-15 10:15 | XMS_ITS | Encounter Summary ---
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
--- OUTSIDE RECORDS SUMMARY | 2025-04-15 10:15 | XMS_ITS | Encounter Summary ---
Author Organization [facility] Address [address] [place] [address] Care Team Providers Care Experimental Technician Name Role Phone Jose Hendricks MD Primary Care Provider +1 -[phone] Reason for Referral * Medication Prior Authorization - Authorized Specialty Diagnoses / Procedures Referred By Contac t Referred To Contact Diagnoses Other closed nondisplaced fracture of fourth cervical vertebra with routine healing, subsequent encounter Other closed nondisplaced fracture of fifth cervical vertebra with routine healing, subsequent encounter Jose Hendricks MD [address] [address] Phone: tel: fax: Referral ID Status Reason Start Date Expiration Date V isits Requested Visits Authorized [id number] Authorized 03/30/2025 06/20/2099 1 1 Reason for Visit * Reason Comments Remote Monitoring Encounter Details Date Type Department Care Team (Late st Contact Info) Description 04/11/2025 [facility] Medicine [place] [address] [phone] Arpita He FNP [address] [phone] Other closed nondisplaced fracture of fifth cervical vertebra with routine healing, subsequent encounter (Primary Dx); Other closed nondisplaced fracture of fourth cervical vertebra with routine healing, subsequent encounter Social History Tobacco Use Types Packs/Day Years [...] on file Legal Sex Male 12:22 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 Gender Identity Not on file Sexual Orientation Not on file documented as of this encounter Miscellaneous Notes * Telephone Encounter - Karolyn Leonardo RN - 04/11/2025 4:47 PM CDT Medication Refill Request Last Fill Date: per daughter filled on 04/10/25 #14 tabs Recent and Future Visits: Recent Visits Date Type Provider Dept 01/03/25 Office Visit Jose Hendricks MD [facility] Family [facility] 09/11/24 Office Visit Ana Morales NP [facility] 07/19/24 Office Visit Jose Hendricks MD [facility] 04/14/24 Office Visit Kathrin Ortiz FNP [facility] Family Medicine [place] 03/01/24 Office Visit Jose Hendricks MD [facility] Showing recent visits within past 540 days with a meds authorizing provider and meeting all other requirements Today's Visits Date Type Provider Dept 04/11/25 Video Visit Arpita He FNP [facility] Showing today's visits with a meds authorizing provider and meeting all other requirements Future Appointments Date Type Provider Dept 08/01/25 Appointment Jose Hendricks MD [facility] Showing future appointments within next 365 days with a meds authorizing provider and meeting all other requirements * Telephone Encounter - Karolyn Leonardo RN - 04/11/2025 4:46 PM CDT 04/11/2025 4:46 PM Returned call and spoke with caregiver. Discussed message per Arpita. Linsey states that patient got 7 days worth from the ER and started them Wednesday, she was wondering how to get this renewed for patient. Advised that request will be sent to Dr. Hendricks. Voiced understanding. Karolyn PEREZ * Telephone Encounter - Eric Deras - 04/11/2025 4:11 PM CDT Copied from [facility] #[id number]. Topic: Patient Reported Outcome Metrics >> Apr 11, 2025 4:10 PM Eric Alonzo wrote: Caller Name: Linsey (on PHI) Callback Number: [phone] Call Notes: Caller is reporting Follow up information from an appointment Patient needs to report they did not ask about the morphine and they were supposed to ask if that would be continued, requesting call back documented in this encounter Plan of Treatment Upcoming Encounters Date Type Department Care Team (Late st Contact Info) Description 05/01/2025 2:30 PM COATER OPERATOR INSULATION BOARD Office Visit [facility] [address] [place] [phone] Ermelinda Corona NP [address] [place] [phone] 08/01/2025 2:20 PM COATER OPERATOR INSULATION BOARD Office Visit [facility] [address] [phone] Jose Hendricks MD [address] [phone] documented as of this encounter Visit Diagnoses Diagnosis Other closed nondisplaced fracture of fifth cervical vertebra with routine healing, subsequent encounter- Primary Other closed nondisplaced fracture of fourth cervical vertebra with routine healing, subsequent encounter documented in this encounter Additional Health Concerns Assessment Noted Time PHQ-9 Depression Total Score: 2 07/19/19 25 2:11 PM COATER OPERATOR INSULATION BOARD documented as of this encounter Care Teams Experimental Technician Relationship Specialty Start Date End Date Jose Hendricks MD [address] [phone] PCP - General Family Practice 07/16/21 documented as of this encounter
--- OUTSIDE RECORDS SUMMARY | 2025-04-15 10:15 | XMS_ITS | Encounter Summary ---
Author Organization 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
--- OUTSIDE RECORDS SUMMARY | 2025-04-15 10:15 | XMS_ITS | Encounter Summary ---
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
--- OUTSIDE RECORDS SUMMARY | 2025-04-15 10:15 | XMS_ITS | Encounter Summary ---
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
--- OUTSIDE RECORDS SUMMARY | 2025-04-15 10:15 | XMS_ITS | Encounter Summary ---
Author Organization 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
--- OUTSIDE RECORDS SUMMARY | 2025-04-15 10:15 | XMS_ITS | Encounter Summary ---
Author Organization [facility] Address [address] [place] [address] Care Team Providers Care Puttier Name Role Phone Destiny Peck MD Primary Care Provider +1- [phone] Encounter Details Date Type Department Care Team (Late st Contact Info) Description 03/27/2014 Ancillary Orders [facility] Laboratory Services [place] [address] [phone] Dinah Mercado MD NO ADDRESS ON FILE [...] on file Legal Sex Male 3:[address] Gender Identity Not on file Sexual Orientation [...] documented as of this encounter Care Teams Puttier Relationship Specialty Start Date End Date Destiny Peck MD [address] [phone] PCP - General Family Practice 07/10/13 documented as of this encounter
--- OUTSIDE RECORDS SUMMARY | 2025-04-15 10:15 | XMS_ITS | Encounter Summary ---
Author Organization [facility] Address [address] [place] [address] Care Team Providers Care One Piece Expansion Maker Hand Name Role Phone Destiny Peck MD Primary Care Provider Encounter Details Date Type Department Care Team (Latest Contact Info) Description 06/10/2001 Outpatient Historical [facility] Medicine [address] [phone] Gulshan Mir MD [address] [phone] HYPERLIPIDEMIA NEC/NOS (Primary Dx); Elevated PSA Social History Tobacco Use Types Packs/Day Years Used Date Smoking Tobacco: Never Assessed Sex and Gender Information Value Date Recorded Sex Assigned at Not on file 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
--- OUTSIDE RECORDS SUMMARY | 2025-04-15 10:15 | XMS_ITS | Encounter Summary ---
Author Organization [facility] Address [address] [place] [address] Care Team Providers Care Nitroglycerin Distributor Name Role Phone Destiny Peck MD Primary Care Provider Encounter Details Date Type Department Care Team (Latest Contact Info) Description 10/26/2000 Outpatient Historical [facility] Family Medicine [address] [phone] Ronna Sidhu MD Esophageal reflux (Primary Dx) Social History Tobacco Use Types Packs/Day Years Used Date Smoking Tobacco: Never Assessed Sex and Gender Information Value Date Recorded Sex Assigned at Not on file 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
--- OUTSIDE RECORDS SUMMARY | 2025-04-15 10:15 | XMS_ITS | Encounter Summary ---
Author Organization [facility] Address [address] [place] [address] Care Team Providers Care Field Automobile Adjuster Name Role Phone Destiny Peck MD Primary Care Provider Encounter Details Date Type Department Care Team (Latest Contact Info) Description 06/23/2000 Outpatient Historical [facility] Family Medicine- [address] [phone] Gulshan Mir MD [address] [phone] Esophageal reflux (Primary Dx); Hyperplasia of prostate Social History Tobacco Use Types Packs/Day Years Used Date Smoking Tobacco: Never Assessed Sex and Gender Information Value Date Recorded Sex Assigned at Not on file 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 Sex 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 Gender Identity Not on file Sexual Orientation Not on file documented as of this encounter Plan of Treatment Not on file documented as of this encounter Visit Diagnoses Diagnosis Esophageal reflux- Primary Hyperplasia of prostate documented in this encounter Additional Health Concerns Infection Onset Date Last Indicated Resolved Time C Diff Comment:04/16/15 04/17/2015 04/17/2015 documented as of this encounter Care Teams Field Automobile Adjuster Relationship Specialty Start Date End Date Destiny Peck MD [address] [facility] [address] [place] [phone] PCP - General Family Practice 07/10/13 documented as of this encounter
--- OUTSIDE RECORDS SUMMARY | 2025-04-15 10:15 | XMS_ITS | Encounter Summary ---
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
--- OUTSIDE RECORDS SUMMARY | 2025-04-15 10:15 | XMS_ITS | Clinical Summary ---
Author Organization [facility] Address [address] [place] [address] Care Team Providers Care Tenter Feeder Name Role Phone Destiny Peck MD Primary Care Provider [phone] Allergies No known active allergies Medications ASPIRIN [...] 2 diabetes mellitus with complication, unspecified whether terminal carman insulin use ([facility]) Use as directed.. 1 Kit 1 8 [...] 9 Active fluticasone propionate (FLONASE) 50 mcg/spray [place], Suspension nasal inhaler Administer 2 Sprays in [...] Tablet 3 0 Active blood sugar diagnostic ([employer] Verio test strips) Strip USE 1 STRIP [...] GLEZ/Diagnonal Assessment & Plan (08/19/2016 1:28 PM TOOL DRAWING CHECKER): Stable. Hyperlipidemia 04/05/2008 Overview (08/19/2016): Lab Results [...] AM Assessment & Plan (08/19/2016 1:26 PM TOOL DRAWING CHECKER): Stable. GERD (gastroesophageal reflux disease) Resolved Problems [...] on file Legal Sex Male 3:17 AM TOOL DRAWING CHECKER Gender Identity Not on file Sexual Orientation [...] 11/10/2025 11/10/2024 Medical Devices Implanted Type Area Pool Cleaner Device Identifier Shelf Expiration Date Model / Serial / Lot 8fr Flexima Nephrostomy Catheter-2014 Implanted:Qty: 1 on 04/15/2015 by Harshad Monroe MD Catheter Left: Abdomen [employer] 12/30/2017 [id number] / / [id number] 8fr Flexima Nephrostomy Catheter-2014 Implanted:Qty: 1 on 04/15/2015 by Harshad Monroe MD Catheter Right: Abdomen [employer] 12/10/2017 [id number] / / [id number] Sealant Floseal W/ Adptr 10ml [id number] - [id number] Implanted:Qty: 1 on 04/08/2015 by Jefe Hearn MD at [facility] Sealant N/A: Abdomen [employer] 05/20/2016 [id number] / / [id number] Procedures Procedure Name Priority Date/Time Associated Diagnosis Comments LIPID PANEL Routine 05/24/2020 8:22 AM TOOL DRAWING CHECKER Hyperlipidemia, unspecified hyperlipidemia type HEMOGLOBIN A1C Routine 05/24/2020 8:22 AM TOOL DRAWING CHECKER Type 2 diabetes mellitus with hyperglycemia, without long-term current use of insulin ([facility]) MICROALBUMIN/CREATI NINE RATIO, RANDOM UR Routine 06/12/2019 11:42 AM TOOL DRAWING CHECKER Type 2 diabetes mellitus with hyperglycemia, without long-term current use of insulin ([facility]) from Last 3 Months or Most Recently Relevant to Health Maintenance Results * (ABNORMAL) HEMOGLOBIN A1C (05/24/2020 8:22 AM TOOL DRAWING CHECKER) HEMOGLOBIN A1C 7.2(H) See Comment % 05/24/2020 8:44 PM TOOL DRAWING CHECKER [facility] EST. AVG GLUCOSE, A1C 160 mg/dL 05/24/2020 8:44 PM [facility] Blood Collection / Unknown 05/24/2020 8:22 AM TOOL DRAWING CHECKER 05/24/2020 8:15 PM TOOL DRAWING CHECKER Narrative [facility] - 05/24/2020 8:44 PM TOOL DRAWING CHECKER HGB A1C INTERPRETATION NORMAL: <5.7% PRE-DIABETES: 5.7 - 6.4% DIABETES: 6.5% OR GREATER Falsely low A1C measurements can occur when: 1. Anemia and/or hemolytic anemia is present. 2. Hemoglobin variants present. 3. Renal failure. 4. Transfusion of blood product in the last 120 days. We recommend ordering a fructosamine test([id number]) to more accurately assess glycemic status if any of the above conditions are present. Gregorio GARCIA CHEMISTRY ORDERABLES Final Re sult [facility] CLIA# [id number] [address] [place] [address] * (ABNORMAL) LIPID PANEL (05/24/2020 8:22 AM TOOL DRAWING CHECKER) CHOLESTEROL 150 <200 mg/dL 05/24/2020 9:19 PM [facility] TRIGLYCERIDE 213(H) <150 mg/dL 05/24/2020 9:19 PM [facility] HDL 37(L) 40 - 59 mg/dL 05/24/2020 9:19 PM [facility] LDL CALCULATED 70 <100 mg/dL 05/24/2020 9:19 PM [facility] NON-HDL CHOLESTEROL 113 <130 mg/dL 05/24/2020 9:19 PM [facility] Blood Collection / Unknown 05/24/2020 8:22 AM TOOL DRAWING CHECKER 05/24/2020 8:15 PM TOOL DRAWING CHECKER Narrative [facility] - 05/24/2020 9:19 PM TOOL DRAWING CHECKER TOTAL CHOLESTEROL mg/dL Desirable <200 Borderline high [...] Gregorio GARCIA CHEMISTRY ORDERABLES Final Re sult [facility] CLIA# [id number] [address] [place] [address] * MICROALBUMIN/CREATININE RATIO, RANDOM UR (06/12/2019 11:42 AM TOOL DRAWING CHECKER) MICROALBUMIN, URINE <1.2 No Reference Range mg/dL 06/12/2019 9:20 PM [facility] CREATININE, URINE 133.5 40.0 - 278.0 mg/dL 06/12/2019 9:20 PM [facility] Comment:Reference Range vari es with fluid intake and diet. MICROALBUMIN/C REAT RATIO, UR <9.0 <17.0 mg/g 06/12/2019 9:20 PM [facility] Urine URINE SPECIMEN OBTAINED BY CLEAN CATCH PROCEDURE / Unknown Collection / Unknown 06/12/2019 11:42 AM TOOL DRAWING CHECKER 06/12/2019 7:58 PM TOOL DRAWING CHECKER Narrative [facility] - 06/12/2019 9:20 PM TOOL DRAWING CHECKER Condition Microalbumin/Creat ratio Normal Males <17 Normal Females <25 Microalbuminuria Males 17-299 Microalbuminuria Females 25-299 Overt proteinuria >=300 Gregorio GARCIA URINE ORDERABLES Final Result Performing Organization Address [facility]/ZIP Co de Phone Number [facility] CLIA# [id number] [address] [place] [address] from Last 3 Months or Most Recently Relevant to Health Maintenance Additional Health Concerns Infection Onset Date Last Indicated C Diff Comment:04/16/15 04/17/2015 04/17/2015 Insurance MEDICARE PART A AND B [place]ICAID [place] PART A [place] B Advance Directives For more information, please contact: [phone] Documents on File Type Date Recorded Patient Rn Bone Marrow Transplant Expl anation Advance Directive POA 03/22/2014 9:32 [...] 12:41 AM 07/05/2008 2:04 PM Care Teams Tenter Feeder Relationship Specialty Start Date End Date Destiny Peck MD [address] [phone] PCP - General Family Practice 07/10/13
--- OUTSIDE RECORDS SUMMARY | 2025-04-15 10:15 | XMS_ITS | Encounter Summary ---
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
--- OUTSIDE RECORDS SUMMARY | 2025-04-15 10:15 | XMS_ITS | Encounter Summary ---
Author Organization [facility] Address [address] [place] [address] Care Team Providers Care Retail Sales Consultant Name Role Phone Destiny Peck MD Primary Care Provider Encounter Details Date Type Department Care Team (Latest Contact Info) Description 07/30/2003 Outpatient Historical [facility] [address] [place] [address] Beth Bruner, COMPUTER BOOKKEEPER [address] [place] [phone] ACUTE SINUSITIS NOS (Primary Dx); ACUTE BRONCHITIS Social History Tobacco Use Types Packs/Day Years Used Date Smoking Tobacco: Never Assessed Sex and Gender Information Value Date Recorded Sex Assigned at Not on file 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 Gender Identity Not on file Sexual Orientation Not on file documented as of this encounter Plan of Treatment Not on file documented as of this encounter Visit Diagnoses Diagnosis Acute sinusitis, unspecified- Primary Acute bronchitis documented in this encounter Additional Health Concerns Infection Onset Date Last Indicated Resolved Time C Diff Comment:04/16/15 04/17/2015 04/17/2015 documented as of this encounter Care Teams Retail Sales Consultant Relationship Specialty Start Date End Date Destiny Peck MD [address] [facility] [address] [place] [phone] PCP - General Family Practice 07/10/13 documented as of this encounter
--- OUTSIDE RECORDS SUMMARY | 2025-04-15 10:15 | XMS_ITS | Encounter Summary ---
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
--- OUTSIDE RECORDS SUMMARY | 2025-04-15 10:15 | XMS_ITS | Encounter Summary ---
Author Organization [facility] Address [address] [place] [address] Care Team Providers Care Fiberglass Autobody Repairer Name Role Phone Destiny Peck MD Primary Care Provider [phone] Encounter Details Date Type Department Care Team (Latest Contact Info) Description 12/13/2001 Outpatient Historical [facility] Family Medicine [address] [address] Gulshan Mir MD [address] [address] ARTHROPATHY NOS-UNSPEC (Primary Dx) Social History Tobacco Use Types Packs/Day Years Used Date Smoking Tobacco: Never Assessed Sex and Gender Information Value Date Recorded Sex Assigned at Not on file 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 Gender Identity Not on file Sexual Orientation Not on file documented as of this encounter Plan of Treatment Not on file documented as of this encounter Visit Diagnoses Diagnosis Arthropathy, unspecified, site unspecified- Primary documented in this encounter Additional Health Concerns Infection Onset Date Last Indicated Resolved Time C Diff Comment:04/16/15 04/17/2015 04/17/2015 documented as of this encounter Care Teams Fiberglass Autobody Repairer Relationship Specialty Start Date End Date Destiny Peck MD [address] [phone] PCP - General Family Practice 07/10/13 documented as of this encounter
--- OUTSIDE RECORDS SUMMARY | 2025-04-15 10:16 | XMS_ITS | Encounter Summary ---
Author Organization [facility] Address [address] [place] [address] Care Team Providers Care Rock Breaker Name Role Phone Jose Hendricks MD Primary Care Provider [phone] -[phone] Encounter Details Date Type Department Care Team (Late st Contact Info) Description 04/11/2025 External Device Data [facility] ABSTRACTION Provider, Abstract NO ADDRESS ON FILE Social History Tobacco [...] on file Legal Sex Male 12:22 AM SHIPFITTER HELPER Gender Identity Not on file Sexual Orientation Not on file documented as of this encounter Plan of Treatment Upcoming Encounters Date Type Department Care Team (Late st Contact Info) Description 05/01/2025 2:30 PM SHIPFITTER HELPER Office Visit [facility]3] Neurosurgery [address] [place] [address] Ermelinda Corona NP [address] [place] [address] 08/01/2025 2:20 PM SHIPFITTER HELPER Office Visit [facility]3] Family Medicine [place] [address] [phone] Jose Hendricks MD [address] [phone] documented as of this encounter Visit Diagnoses Not on filedocumented in this encounter Additional Health Concerns Assessment Noted Time PHQ-9 Depression Total Score: 2 07/19/19 25 2:11 PM SHIPFITTER HELPER documented as of this encounter Care Teams Rock Breaker Relationship Specialty Start Date End Date Jose Hendricks MD [address] [phone] PCP - General Family Practice 07/16/21 documented as of this encounter
--- OUTSIDE RECORDS SUMMARY | 2025-04-15 10:16 | XMS_ITS | Encounter Summary ---
Author Organization [facility] Address [address] [place] [address] Care Team Providers Care Environmental Sciences Professor Name Role Phone Jose Hendricks MD Primary Care Provider [phone] -[phone] Reason for Referral * Eval and Treat (5-7 Days) - Pending Review Specialty Diagnoses / Procedures Referred By Nick borden Referred To Contact Pain Management Diagnoses Other closed nondisplaced fracture of fourth cervical vertebra with routine healing, subsequent encounter Other closed nondisplaced fracture of fifth cervical vertebra with routine healing, subsequent encounter Procedures VT OFFICE/OUTPATIENT ESTABLISHED MOD MDM 30 MIN [place] OFFICE/OUTPATIENT NEW MODERATE MDM 45 MINUTES Arpita He FNP [address] [address] Phone: tel: fax: [facility] [address] [place] [address] Phone: tel: fax: Referral ID Status Reason Start Date Expiration Date V isits Requested Visits Authorized [id number] Pending Review 04/13/2025 04/13/2026 1 1 Encounter Details Date Type Department Care Team (Late st Contact Info) Description 04/13/2025 Orders Only [facility] Medicine [place] [address] [phone] Arpita He, SR. PRICING ANALYST [address] [place] [address] Other closed nondisplaced fracture of fourth [...] worry about transportation for future doctor visits, supervisor opening and picking medication, etc.? 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 Gender Identity Not on file Sexual Orientation Not on file documented as of this encounter Plan of Treatment Upcoming Encounters Date Type Department Care Team (Late st Contact Info) Description 05/01/2025 2:30 PM INFLATED PAD BUFFER Office Visit [facility] Neurosurgery [address] [place] [address] Ermelinda Corona NP [address] [place] [address] 08/01/2025 2:20 PM INFLATED PAD BUFFER Office Visit [facility] Family Medicine [place] [address] [phone] Jose Hendricks MD [address] [phone] Scheduled Referrals Name Type Priority Associated Diagnoses Orde r Schedule AMB REFERRAL TO PAIN CLINIC Outpatient Referral Routine Other closed nondisplaced fracture of fourth cervical vertebra with routine healing, subsequent encounter Other closed nondisplaced fracture of fifth cervical vertebra with routine healing, subsequent encounter Ordered: 04/13/2025 documented as of this encounter Visit Diagnoses Diagnosis Other closed nondisplaced fracture of fourth cervical vertebra with routine healing, subsequent encounter- Primary Other closed nondisplaced fracture of fifth cervical vertebra with routine healing, subsequent encounter documented in this encounter Additional Health Concerns Assessment Noted Time PHQ-9 Depression Total Score: 2 07/19/19 25 2:11 PM INFLATED PAD BUFFER documented as of this encounter Care Teams Environmental Sciences Professor Relationship Specialty Start Date End Date Jose Hendricks MD [address] [phone] PCP - General Family Practice 07/16/21 documented as of this encounter
--- OUTSIDE RECORDS SUMMARY | 2025-04-15 10:16 | XMS_ITS | Encounter Summary ---
Author Organization [facility] Address [address] Attn: [place] [address] Care Team Providers Care Tack Cleaner Name Role Phone Jose Hendricks MD Primary Care Provider [phone] [phone] Encounter Details Date Type Department Care Team (Latest Contact Info) Description 04/13/2025 Travel Social History Tobacco Use Types Packs/Day Years [...] worry about transportation for future doctor visits, roll picker medication, etc.? 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 Gender Identity Not on file Sexual Orientation Not on file documented as of this encounter Plan of Treatment Upcoming Encounters Date Type Department Care Team (Late st Contact Info) Description 05/01/2025 2:30 PM DOCKING SAW OPERATOR Office Visit [facility] Neurosurgery [address] [place] [address] Ermelinda Corona NP [address] [place] [address] 08/01/2025 2:20 PM DOCKING SAW OPERATOR Office Visit [facility] Family Medicine [place] [address] [phone] Jose Hendricks MD [address] [phone] documented as of this encounter Visit Diagnoses Not on filedocumented in this encounter Additional Health Concerns Assessment Noted Time PHQ-9 Depression Total Score: 2 07/19/19 25 2:11 PM DOCKING SAW OPERATOR documented as of this encounter Care Teams Tack Cleaner Relationship Specialty Start Date End Date Jose Hendricks MD [address] [phone] PCP - General Family Practice 07/16/21 documented as of this encounter
--- OUTSIDE RECORDS SUMMARY | 2025-04-15 10:16 | XMS_ITS | Encounter Summary ---
Author Organization [facility] Address 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 Gender Identity Not on file Sexual Orientation Not on file documented as of this encounter Plan of Treatment Upcoming Encounters Date Type Department Care Team (Late st Contact Info) Description 05/01/2025 2:30 PM OPERATIONS CONTROLLER Office Visit [facility] Neurosurgery [address] [place] [address] [place] [address] Ermelinda Corona NP [address] [place] [address] 08/01/2025 2:20 PM OPERATIONS CONTROLLER Office Visit [facility] Family Medicine [place] [address] [address] Jose Hendricks MD [address] [phone] documented as of this encounter Visit Diagnoses Not on filedocumented in this encounter Additional Health Concerns Assessment Noted Time PHQ-9 Depression Total Score: 2 07/19/19 25 2:11 PM OPERATIONS CONTROLLER documented as of this encounter Care Teams Ball Maker Relationship Specialty Start Date End Date Jose Hendricks MD [address] [phone] PCP - General Family Practice 07/16/21 documented as of this encounter
--- NOTE | 2025-04-15 10:21 | ED_ITS ---
HPI - Neck Pain/Injury General: Chief Complaint: Neck Pain/Injury Stated Complaint: neck pain Time Seen by Provider: 04/15/25 10:11 History of Present Illness: Patient is an 84-year-old gentleman that presents back to the emergency room for ongoing neck pain without change, known C4-5 fracture, with inability to take care of himself. He has not had another fall. His only complaint is his neck pain. Details of fall: 04/09/25: 84 yo M presents with persiste nt neck pain one week after a fall in the garage when a cart tipped, causing him to strike the back of his neck on a toolbox. (Initial fall approximately 04/02/2025) Radiology details: Cervical Spine CT 04/09/25 11:45 IMPRESSION: 1. Nondisplaced fractures involving the LEFT ankylosed posterior elements at C4-5 extending into the articulating facets and lamina. This also appears to extend through the C4-5 disc space with disruption of the anterior and posterior longitudinal ligaments. Additional nondisplaced fracture involving the LEFT posterior inferior corner C4. Recommend spine surgery consultation. 2. See bookmarked images 3. 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 Cervical Spine MRI 04/09/25 14:30 IMPRESSION: 1. Fractures through posteroinferior v ertebral body at C4 in the left C4 lateral mass are accompanied by evidence of disruption of anterior and posterior longitudinal ligaments at C4-C5 and likely disc disruption at C3-C4. 2. Multilevel muscular strains and spr ains of the interspinous ligaments from C2-C5. 3. Mild spinal stenosis from approxima tely C3-C4 to C5-C6 due to combination of degenerative changes in a thin dorsal epidural hematoma. Patient was given morphine 15 mg twice daily for pain control. Patient states he is not able to take care of himself and has continued pain. Patient was to follow-up with Dr. Grant. He is not aware of any appointment for follow-up. MD complaint: neck pain and neck injury Onset (ago): week(s) (2) Place: home Radiation: left lateral Severity: moderate and severe Severity scale (1-10): 8 Associated symptoms: Reports headache(s); Denies nausea Related Data Previous Rx's ?Medication ?Instructions ?Recorded morphine 15 mg tablet,extended 15 mg PO Q12H PRN moder ate pain 04/09/25 release #30 tabs gabapentin 300 mg capsule 300 mg PO BID #60 caps 04/15 Allergies Allergy/AdvReac Type Severity Reaction Status Date / Time No Known Allergies Allergy Verified 04/09/25 10:49 Review of Systems General: Reports: 10 or more systems reviewed and unremarkable except in HPI and below Const: Denies: fever(s) or chills Eyes: Denies: change in vision or blurry vision ENMT: Denies: throat pain or nasal discharge Card: Denies: chest pain or palpitations Resp: Denies: dyspnea or productive cough GI: Denies: abdominal pain, nausea or vomiting : Denies: flank pain or difficulty urinating Musc: Reports: neck pain; Denies: back pain or extremity pain Skin/Breast: Denies: rash or pruritus Neuro: Reports: headache(s); Denies: numbness in extremities or weakness in extremities Psych: Reports: anxiety; Denies: depression Physical Exam Const: COMMON NORMALS: no acute distress, patient oriented x3 and alert HENMT: COMMON NORMALS: normocephalic and atraumatic HEAD & SCALP: normocephalic and atraumatic Eye: COMMON NORMALS: Equal, round and reactive pupils present, EOMs intact bilaterally and no scleral icterus PUPIL: Yes Equal, round and reactive pupils present Neck/C-Spine: OTHER: C-collar in place. No additional manipulation has been attempted. Resp: COMMON NORMALS: normal respiratory effort and No retractions Cardio: COMMON NORMALS: regular rate, regular rhythm and No murmurs present (Cardio) RATE: regular rate RHYTHM: regular rhythm GI: COMMON NORMALS: Normal to inspection, nondistended, normoactive bowel sounds present, Soft to palpation and non-tender PALPATION: Yes Soft to palpation : COMMON NORMALS: Yes no CVA tenderness BLADDER/KIDNEY EXAM: Yes no CVA tenderness Back/Pelvis: COMMON NORMALS: no CVA tenderness Neuro: COMMON NORMALS: patient oriented x3 SENSORIUM/ORIENTATION: Yes alert Skin: COMMON NORMALS: no rashes or lesions noted GENERAL SKIN EXAM: no rashes or lesions noted Course Reevaluation(s): Reevaluation #1: Updated family of the social issue, and inability to admit patient. Option of fdc [id number] with rehabilitation was discussed with patient and family. Nursing working with nursing retail supervisor/(social sciences professor/shoe caser is out today.) Reevaluation #2: No change in patient's condition Vital Signs: Vital signs: Vital Signs Temperature 98.2 F 04/15/25 10:07 Pulse Rate 83 04/15/25 11:20 Respiratory Rate 16 04/15/25 12:32 Blood Pressure 150/65 04/15/25 12:32 Pulse Oximetry 91 04/15/25 12:32 Oxygen Delivery Me thod Room Air 04/15/25 11:20 MDM - Neck Pain/Injury Medical Decision Making Patient is a 84-year-old gentleman that presents to the emergency room with inability to take care of himself. He has C4-5 fracture as noted, that is recommended for medical management without surgical treatment. MRI and CT are noted above in HPI. Patient has not had a follow-up appointment with Dr. Grant. He states he cannot take care of himself. He states he needs better pain control. Will give [place] with gabapentin x 1 here, and work on possible placement. Patient is willing to go to a rehab or nursing facility at this time. Family has agreed to take him home, however then stated that he could not get the car, and they were just going to leave him here. It sounds like caregiver exhaustion, however they cannot abandon this gentleman here, and it will be escalated to hotline if the patient is abandoned by his family. Unfortunately, we do not have the services available that they desire. I do sympathize with them, and would help them myself if I was not at work. It is a sad situation to be caught in this type of a loop hole. They do not believe they have the money to place him in a rehab facility for [id number] since he is on a limited income. Both the son and daughter are exhausted. I believe a rehab facility would be the best thing for this gentleman, however there is no way to place him there at this juncture. Explained all of this to the family and patient before the family was here. He stated acceptance and understanding. Sent gabapentin to the pharmacy to help with peripheral nerve spasming's, and hydrocodone x 2 home with patient. He does have 8 more days of his morphine. They are supposed to call Dr. Grant's office for follow-up and possible rehab. They have not done this to date. Medical Records I reviewed the patient's medical records. No radiology studies performed this visit Discharge Plan Discharge Patient Disposition: Home Clinical Impression: Cervical spine fracture Condition: Stable Prescriptions: New gabapentin 300 mg capsule 300 mg PO BID Qty: 60 0RF No Action morphine 15 mg tablet extended release 15 mg PO Q12H PRN (Reason: moderate pain) Qty: 30 0RF Discharge Orders: Discharge ED (Routine); Ordered 04/15/25 Ordered By: Fatou Carrillo Referrals: Gregorio Espana [Family Provider, Physicians Lead Clinical Research Coordinator] Pravin Bridges MD [Primary Care Provider, Neurology] Discharge Diet: Usual diet Discharge Activity: Resume usual activity and Use walker/crutches as instructed Patient Instructions: Kip Becerril Collar (ED), Opioid Safety, Pain Management, Patient Portal & Raymundo Instructions Activity Restrictions/Additional Instructions: - Call Dr. Grant's office tomorrow for your follow-up. There is a referral in the system, and follow-up can be scheduled this week. As well, they are capable of ordering your physical therapy, and Occupational Therapy. - Take your pain medication as prescribed. You should have additional 8 days of this medication. #2 of hydrocodone will be sent home with you to help for breakthrough pain, and gabapentin will help with peripheral nerve pain/radiation. This has been sent to the pharmacy of choice. - I am sorry we cannot help you more with an admission, this is not a rehab facility, we are here for acute issues. We are more than happy to check him out again if you need help. Please continue to work through this so he can get what ever he needs with rehabilitation. You are welcome to call [place] rehabilitation center and talk directly with them and work directly with them, which might be your best bet of getting him more help. Home health care services might be able to help, however sometimes this is limited. Thank you for choosing [facility] for your healthcare needs today. You have been screened and evaluated and felt safe for discharge. Health conditions do change or evolve sometimes and as such it is important that you follow up with your Primary Doctor to be re checked, 3-5 days is a general good time frame for follow up. You are always welcome to return to the ED for re assessment if your symptoms are worsening or you have new concerns Print Language: [place] Coding Level of Care Code ED Staff Psychologist for Joie Villasenor
[2025-04-15] MEDS: HYDROcodone-acetaminophen 10-325 mg Tablet 1 TAB PO (10:37)
[2025-04-15 11:20] VITALS: BP 132/71; PULSE 83; RESP 18; O2SAT 92
[2025-04-15 12:32] VITALS: BP 150/65; RESP 16; O2SAT 91
[2025-04-15] MEDS: HYDROcodone-acetaminophen 10-325 mg Tablet 2 TAB PO (13:00)
[2025-04-15 13:25] VITALS: BP 178/65; PULSE 76; RESP 15; O2SAT 94
== END 2025-04-15 13:25 | disposition home or self-care (01) ==
PROVIDERS: Emergency Provider Physician Assistant; Family Provider Physician Assistant Medical; PCP Psychiatry & Neurology Neurology
DX: S12.300D Unspecified displaced fracture of fourth cervical vertebra, subsequent encounter for fracture with routine healing (principal); S12.400D Unspecified displaced fracture of fifth cervical vertebra, subsequent encounter for fracture with routine healing; W19.XXXD Unspecified fall, subsequent encounter
CPT/HCPCS: 99283; J9999